=== PATIENT | female | born 2005 | race Caucasian/White ===

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

== ENCOUNTER 2023-09-27 19:32 | Emergency (ER) | payer MEDICAID, SELFPAY ==
[2023-09-27 19:34] VITALS: BP 117/90; PULSE 105; RESP 18; TEMP 35.9; O2SAT 99; BMI 21.6
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
== END 2023-09-27 22:48 | disposition home or self-care (01) ==
PROVIDERS: Emergency Provider Emergency Medicine; Visit Provider Emergency Medicine
DX: S20.212A Contusion of left front wall of thorax, initial encounter (principal); M25.512 Pain in left shoulder; V43.54XA Car driver injured in collision with van in traffic accident, initial encounter; Z79.899 Other long term (current) drug therapy; F17.210 Nicotine dependence, cigarettes, uncomplicated
CPT/HCPCS: 71045; 99282

== ENCOUNTER → 2023-12-21 | Outpatient (CLI) | payer MEDICAID, SELFPAY ==
--- NOTE | 2023-12-21 13:16 | US_ITS ---
STUDY: FIRST TRIMESTER OBSTETRICAL ULTRASOUND REASON FOR EXAM: Female, 18 years old Viability LMP: August 10, 2024. TECHNIQUE: Transvaginal TECHNICAL QUALITY: Adequate. PRIOR ULTRASOUND: None. FINDINGS: There is visualization of a single gestational sac in a normal intrauterine position. The mean sac diameter (MSD) measures 1.11 cm, indicating an estimated gestational age (EGA) of 5 weeks, 6 days. The gestational sac shape is within normal limits. There is a visualized yolk sac. The yolk sac measures 3.1 mm. The placenta is non-visualized. There is no demonstrated embryo ( pole). The estimated gestation age (EGA) by LMP is 6 weeks, 5 days. The estimated date of delivery (CLEMENTE) by LMP is August 10, 2024. The estimated gestation age (EGA) by US is 5 weeks, 6 days. The estimated date of delivery (CLEMENTE) by US is August 16, 2024. The uterus measures 10.2 cm x 7.2 cm x 5.2 cm. There is no demonstrated uterine fibroid. The cervix is closed. The right ovary measures 3.5 cm x 2.8 cm x 3 cm. There is no right ovarian cyst. There is no visualized right adnexal mass or complex lesion. The left ovary measures 3.1 cm x 1.97 x 2.2 cm. There is no left ovarian cyst. There is no visualized left adnexal mass or complex lesion. There is no fluid in the cul de sac. US/Transvaginal w/Preg US IMPRESSION: Intrauterine gestation with mediastinal age of 5 weeks and 6 days. No pole is seen at this time. Electronically Signed: Shivam Han MD at 14:27 EST ,
[2023-12-21 15:14] LABS: Absolute Lymphocyte Count 2.19 X10^3/uL (0.83-4.51); Absolute Neutrophil Count 4.3 X10^3/uL (2.0-7.7); Basophil# 0.02 X10^3/uL; Basophil% 0.3 % (0-1); Eosinophil# 0.03 X10^3/uL; Eosinophils% 0.4 % (0-5); Hematocrit 37.4 % (37-47); Hemoglobin 12.6 g/dL (12.0-15.0); Lymphocyte # 2.19 X10^3/ul (0.83-4.51); Lymphocyte % 31.8 % (19-41); Mean Corp Hgb Conc 33.7 g/dL (32-36); Mean Corpuscular Hgb 29.9 pg (27.0-32.0); Mean Corpuscular Volume 88.8 fL (81-99); Mean Platelet Vol. 10.3 fl (6.2-12.0); Monocyte# 0.37 X10^3/uL; Monocyte% 5.4 % (0-10); NRBC Flagged by Analyzer 0 % (0-5); Neutrophil # 4.27 X10^3/uL (2.7-7.7); Platelet Count 242 K/mm3 (150-450); RBC Distribution Width CV 12.2 % (11.6-14.6); RBC Distribution Width SD 39.6 fl (35.1-43.9); Red Blood Count 4.21 M/mm3 (4.2-5.4); White Blood Count 6.9 K/mm3 (4.4-11.0)
[2023-12-21 16:27] LABS: HIV - WCH Non-Reactive (Nonreactive); Hepatitis B Surface Antigen Non-Reactive (Nonreactive); Hepatitis C Antibody Non-Reactive (Nonreactive); Rubella IgG Reactive (Nonreactive); Syphilis Antibodies Non-reactive
[2023-12-22 15:16] LABS: hCG Titer Quant., Serum 20188 mIU/mL (1-3)
== END | disposition home or self-care (01) ==
PROVIDERS: Advanced Practice Midwife; Obstetrics & Gynecology; Referring Provider Obstetrics & Gynecology; Visit Provider Obstetrics & Gynecology
DX: O26.899 Other specified pregnancy related conditions, unspecified trimester (principal); R10.9 Unspecified abdominal pain; Z3A.00 Weeks of gestation of pregnancy not specified
CPT/HCPCS: 36415; 76817; 84702; 85025; 86703; 86762; 86780; 86803; 86850; 86900; 86901; 87077; 87086; 87088; 87186; 87340

== ENCOUNTER → 2024-01-05 | Outpatient (CLI) | payer MEDICAID, SELFPAY ==
[2024-01-05 10:20] LABS: Amphetamine Urine VISTA NEGATIVE (<1000 ng/mL); Barbiturate Urine VISTA NEGATIVE (< 200 ng/mL); Benzodiazepine Urine VISTA NEGATIVE (< 200 ng/mL); Cocaine Urine VISTA NEGATIVE (< 300 ng/mL); Ecstacy Urine VISTA NEGATIVE (< 500 ng/mL); Methadone Urine VISTA NEGATIVE (< 300 ng/mL); PCP Urine VISTA NEGATIVE (< 25 ng/mL); THC Urine VISTA NEGATIVE (< 50 ng/mL); Vista UDS pH Range 5
[2024-01-06 21:07] LABS: Chlamydia By Nucleic Acid AMP Negative (Negative); Gonococcus By Nucleic Acid AMP Negative (Negative)
== END | disposition home or self-care (01) ==
PROVIDERS: PCP Registered Nurse; Referring Provider Registered Nurse; Visit Provider Registered Nurse
DX: Z34.90 Encounter for supervision of normal pregnancy, unspecified, unspecified trimester (principal)
CPT/HCPCS: 80307; 87491; 87591

== ENCOUNTER 2024-03-12 18:51 | Emergency (ER) | payer MEDICAID, SELFPAY ==
[2024-03-12 18:52] VITALS: BP 131/83; PULSE 101; RESP 18; TEMP 36.4; O2SAT 100; BMI 20.9
[2024-03-12 19:17] LABS: Red Blood Cells-Urine 0 SEEN /hpf (0-5)
[2024-03-12 19:20] LABS: Color, Urine Yellow (Yellow); Glucose, Dipstick Normal (Normal); Ketone-Dipstick Negative (Negative); Leukocyte Esterase-Dipstick 500 /ul (Negative); Nitrite-Dipstick Negative (Negative); Occult Blood-Urine 10 /ul (Negative); Protein-Dipstick Negative (Negative); Specific Gravity, Urine 1.015 (1.002-1.030); Urine Bilirubin Dipstick Negative (Negative); Urine Clarity Clear (Clear); Urine Urobilinogen Normal (Normal); Urine pH 6.5 (5.0 - 8.0)
[2024-03-12 19:20] LABS: Absolute Neutrophil Count 4.5 X10^3/uL (2.0-7.7); Basophil# 0.01 X10^3/uL; Basophil% 0.1 % (0-1); Eosinophil# 0.02 X10^3/uL; Eosinophils% 0.3 % (0-5); Hematocrit 32.7 % (37-47); Hemoglobin 11.3 g/dL (12.0-15.0); Lymphocyte % 29.1 % (19-41); Mean Corp Hgb Conc 34.6 g/dL (32-36); Mean Corpuscular Hgb 30.9 pg (27.0-32.0); Mean Corpuscular Volume 89.3 fL (81-99); Mean Platelet Vol. 10.1 fl (6.2-12.0); Monocyte# 0.36 X10^3/uL; Monocyte% 5.2 % (0-10); NRBC Flagged by Analyzer 0 % (0-5); Neutrophil # 4.47 X10^3/uL (2.7-7.7); Neutrophil % 65.2 % (47-70); Platelet Count 232 K/mm3 (150-450); RBC Distribution Width CV 12.1 % (11.6-14.6); RBC Distribution Width SD 39.6 fl (35.1-43.9); Red Blood Count 3.66 M/mm3 (4.2-5.4); White Blood Count 6.9 K/mm3 (4.4-11.0)
--- NOTE | 2024-03-12 19:21 | EX.ED.DYSGE1 ---
HPI History of Present Illness Chief Complaint: Dizziness Narrative Narrative: 18-year-old female presenting with lightheadedness. She states she was at work and started to feel lightheaded and see spots. She felt nauseous. She felt like she might faint but she did not. She has a coworker which she should do and they told her to eat something and she did which made her more nauseous. She states she had a salad. Patient states that she started some water but then felt like she was going to faint so she wanted to get out of work and came here. Patient is 18 weeks . She states she has had some brown discharge after sexual intercourse. She is a positive. She has not had any bright red blood. She has had confirmed intrauterine already this . No diarrhea or constipation. She does have urinary symptoms and mild headaches which she attributed to . She was told that she has group B strep which is causing her symptoms but she was told she did not have a UTI. Patient denies fevers. She does state that she has a history of anxiety. [facility] Medical History Hx of trauma Hx of chlamydia infection Closed boxer's fracture Substance abuse Smoker Borderline personality disorder Vagina itching Hip pain, bilateral Back pain Oppositional defiant disorder Screen for STD (sexually transmitted disease) Insomnia ADHD Bipolar 1 disorder Depression Anxiety Home Medications ?Medication ?Instructions ?Recorded ?Last Taken ?Type aspirin 81 mg tablet,delayed 81 mg PO DAILY 12/31/23 Unknown History release (Jim Low Dose Aspirin) multivitamin no.47-iron fum 27 cap PO 12/31/23 Unknown History mg-folate no.1 1 mg-dha 300 mg capsule (PNV-DHA) aspirin 81 mg capsule 81 mg PO ONCE #30 caps 01/05/24 Unknown Rx docosahexaenoic acid 200 mg 200 mg PO DAILY #30 caps 01/05/24 Unknown Rx capsule (DHA from Algae) levomefolate calcium 15 mg tablet 15 mg PO DAILY #30 tabs 01/05/24 Unknown Rx (L-Methylfolate) ferrous sulfate 325 mg (65 mg 325 mg PO DAILY #90 tabs 02/02/24 Unknown Rx iron) tablet (Feosol) Allergy/AdvReac Type Severity Reaction Status Date / Time amoxicillin Allergy Mild Hives Verified 03/12/24 18:52 penicillin G Allergy Mild Hives Verified 03/12/24 18:52 Environmental Allergies: Allergy Hives Verified 03/12/24 18:52 Uncoded folic acid AdvReac Intermediate depression Verified 03/12/24 18:52 Family History Grandfather Cancer Maternal -lung Grandmother Diabetes maternal TIA (transient ischemic attack) Mother Liver disease Cirrhosis COPD (chronic obstructive pulmonary disease) Father Fibromyalgia Brother Cancer, Onset Age: 31 Half Brother- Bladder ca Social History adopted: No housing: apartment current occupational status: employed 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 current occupational exposures/hazards: No pets and animals: Yes pets and animals: dog(s) history of recent travel: No sexually active: Yes Smoking Status: Current every day smoker tobacco type: cigarettes and e-cigarettes Electronic Cigarette Use: with nicotine quit status: considering quitting alcohol intake: never substance use type: does not use diet: lactose free well-balanced diet: daily or most days caffeine: Yes Type: coffee Number of servings: 2 eating out: 4 or more times/week during the past year weight has: remained stable what type of physical activity do you participate in: none deepak/gnosticism: None seatbelt use: always do you feel safe at home: Yes additional social history: ERIN Servin ROS ROS ED Constitutional Constitutional ED: Denies chills, fever(s) or sweats Eyes Eyes: Denies blurry vision or change in vision ENT ENT ED: Denies ear pain or sore throat Cardiovascular Cardiovascular: Reports other Details: Lightheadedness ; Denies chest pain, palpitations or racing heartbeat Respiratory/Chest Respiratory/Chest: Denies cough, dyspnea or sputum Gastrointestinal Gastrointestinal: Reports nausea; Denies abdominal pain, constipation, diarrhea or vomiting Genitourinary Genitourinary ED: Denies dysuria, hematuria or urinary frequency Musculoskeletal Musculoskeletal: Denies arthralgias, myalgias or neck pain Integumentary Denies abscess, Abrasions or rash Neurologic Neurologic: Denies headache(s), paresthesias or weakness Psychiatric Psychiatric: Denies anxiety, depression, suicidal ideation or suicidal thoughts Endocrine Endocrinology: Denies polydipsia or polyuria EXAM Physical Exam Const Vital Signs: 03/12/24 18:52 03/12/24 19:06 03/12/24 19:51 Temperature 97.6 F L Temperature Source Temporal Pulse Rate 101 H 69 Respiratory Rate 18 18 Respiratory Effort Normal Blood Pressure 131/83 H 126/70 H Blood Pressure Mean 99 88 Pulse Ox 100 98 Oxygen Delivery Method Room Air 03/12/24 20:51 03/12/24 21:00 Temperature Temperature Source Pulse Rate 67 65 Respiratory Rate 18 18 Respiratory Effort Blood Pressure 124/67 H Blood Pressure Mean 86 Pulse Ox 98 96 Oxygen Delivery Method Room Air Positive well nourished General Appearance ED: NAD; Negative for pallor HEENT Reports moist mucous membranes Eyes PERRL and EOMs intact bilaterally Resp normal respiratory effort and clear to auscultation bilaterally Auscultation: Negative for rales, rhonchi or wheezes Cardio regular rate and regular rhythm GI normal to inspection, nondistended, normoactive bowel sounds Neuro oriented x3 and CN's II-XII intact bilaterally Sensorium / Orientation: alert Motor Exam: strength 5/5 throughout Psych mental status grossly normal Skin no rashes or lesions noted and no wounds General Skin Exam: Negative for jaundice or pallor MDM MDM MDM Narrative Medical decision making narrative: 18-year-old female presenting with nausea and lightheadedness. Basic lab work was obtained and her CBC shows normal white blood count of 6.9. Hemoglobin 11.3. Platelets are normal at 232. Renal function electrolytes within normal limits. hCG is gone up to 21 385. Urinalysis shows 500 leukocyte esterase with 0-5 WBCs and 0-5 squamous epithelial cells. Patient was given Zofran and IV fluids and feels a little bit better but not all the way back to baseline. She is amenable to following up with her CHAIRMAN PRESIDENT AND CHIEF EXECUTIVE OFFICER. She has Zofran at home if she needs it. Bedside ultrasound performed by myself shows a live fetus with active movement and heart tones of 156. Impression: 1. Lightheadedness 2. Nausea Lab Data Attestation: I reviewed the patient's lab results. Labs: Laboratory Results - last 24 hr 03/12/24 03/12/24 19:05 19:08 WBC 6.9 RBC 3.66 L Hgb 11.3 L Hct 32.7 L MCV 89.3 MCH 30.9 MCHC 34.6 RDW Std Deviation 39.6 RDW Coeff of Elijah 12.1 Plt Count 232 MPV 10.1 Immature Gran % (Auto) 0.100 Neut % (Auto) 65.2 Lymph % (Auto) 29.1 Coffey % (Auto) 5.2 Eos % (Auto) 0.3 Baso % (Auto) 0.1 Absolute Neuts (auto) 4.5 Absolute Lymphs (auto) 2.00 Nucleated RBC % 0 Sodium 136 Potassium 4.0 Chloride 107 Carbon Dioxide 24.0 Anion Gap 5 BUN 6 L Creatinine 0.60 Estim Creat Clear Calc 129.15 Est GFR (MDRD) Af Amer 162 Est GFR (MDRD) Non-Af 134 BUN/Creatinine Ratio 9.9 L Glucose 86 Calcium 8.7 HCG, Quant 28036 H Urine Color Yellow Urine Clarity Clear Urine pH 6.5 Ur Specific [place] 1.015 Urine Protein Negative Urine Glucose (UA) Normal Urine Ketones Negative Urine Occult Blood 10 H Urine Nitrite Negative Urine Bilirubin Negative Urine Urobilinogen Normal Ur Leukocyte Esterase 500 H Urine RBC 0 SEEN Urine WBC 0-5 SEEN Ur Squamous Epith Cells 0-5 SEEN Urine Bacteria 1+ Urine Mucus 1+ Discharge Plan Triage Chief Complaint: Dizziness ED Provider: Bob Breaux Dx/Rx/DC Orders Prescriptions: No Action PNV-DHA 27 mg iron-1 mg -300 mg capsule PO aspirin [Jim Low Dose Aspirin] 81 mg tablet,delayed release (DR/EC) 81 mg PO DAILY aspirin 81 mg capsule 81 mg PO ONCE Qty: 30 12RF levomefolate calcium [L-Methylfolate] 15 mg tablet 15 mg PO DAILY Qty: 30 12RF DHA from Algae 200 mg capsule 200 mg PO DAILY Qty: 30 12RF ferrous sulfate [Feosol] 325 mg (65 mg iron) tablet 325 mg PO DAILY Qty: 90 2RF Primary Care Provider: Desiree Eagle [employer] Referrals: Beth Brooks CNM [Med Staff - Adv Practice Prof] - Print Language: Pashto
[2024-03-12 19:27] LABS: Bacteria 1+ /hpf (None Seen); Mucous, Urine 1+ /hpf (<or=2+); Squamous Epithelial Cells - UA 0-5 SEEN /hpf (5-10); White Blood Cells 0-5 SEEN /hpf (0-5)
[2024-03-12] MEDS: Ondansetron 4 MG/2 ML Vial IV (19:28)
[2024-03-12] MEDS: 0.9% Normal Saline (1000mL) 1,000 ML 999 ML IV (19:28)
[2024-03-12 19:32] LABS: Anion Gap 5 (5-15); BUN 6 mg/dL (7-18); BUN/Creat Ratio 9.9 RATIO (10-20); Calcium,Total 8.7 mg/dL (8.5-10.1); Chloride 107 mmol/L (98-107); EST Glomerular Filtration Rate 134 mL/min (>60); Est Glom Filt Rate - Afr Amer 162 mL/min (>60); Estimated Creatinine Clearance 129.15 ml/min; Glucose 86 mg/dL (74-106); Sodium Level 136 mmol/L (136-145)
[2024-03-12 19:51] VITALS: BP 126/70; PULSE 69; RESP 18; O2SAT 98
[2024-03-12 20:21] LABS: hCG Titer Quant., Serum 21385 mIU/mL (1-3)
[2024-03-12 20:51] VITALS: BP 124/67; PULSE 67; RESP 18; O2SAT 98
[2024-03-12 21:00] VITALS: PULSE 65; RESP 18; O2SAT 96
== END 2024-03-12 22:49 | disposition home or self-care (01) ==
PROVIDERS: Emergency Provider Student in an Organized Health Care Education/Training Program; PCP Registered Nurse; Visit Provider Student in an Organized Health Care Education/Training Program
DX: O99.891 Other specified diseases and conditions complicating pregnancy (principal); R42 Dizziness and giddiness; R11.0 Nausea; O99.332 Smoking (tobacco) complicating pregnancy, second trimester; F17.210 Nicotine dependence, cigarettes, uncomplicated; F17.290 Nicotine dependence, other tobacco product, uncomplicated; Z3A.18 18 weeks gestation of pregnancy; Z79.82 Long term (current) use of aspirin
CPT/HCPCS: 80048; 81001; 84702; 85025; 87086; 96361; 96374; 99282; J7030; J2405

== ENCOUNTER → 2024-03-30 | Outpatient (CLI) | payer MEDICAID, SELFPAY ==
[2024-03-30 13:07] LABS: Absolute Lymphocyte Count 1.63 X10^3/uL (0.83-4.51); Absolute Neutrophil Count 6.3 X10^3/uL (2.0-7.7); Basophil# 0.01 X10^3/uL; Basophil% 0.1 % (0-1); Eosinophil# 0.03 X10^3/uL; Eosinophils% 0.4 % (0-5); Hematocrit 31.6 % (37-47); Hemoglobin 10.8 g/dL (12.0-15.0); Lymphocyte # 1.63 X10^3/ul (0.83-4.51); Lymphocyte % 19.8 % (19-41); Mean Corp Hgb Conc 34.2 g/dL (32-36); Mean Corpuscular Hgb 31.2 pg (27.0-32.0); Mean Corpuscular Volume 91.3 fL (81-99); Monocyte# 0.28 X10^3/uL; Monocyte% 3.4 % (0-10); NRBC Flagged by Analyzer 0 % (0-5); Neutrophil # 6.25 X10^3/uL (2.7-7.7); Neutrophil % 75.8 % (47-70); Platelet Count 211 K/mm3 (150-450); RBC Distribution Width CV 12.5 % (11.6-14.6); RBC Distribution Width SD 40.8 fl (35.1-43.9); Red Blood Count 3.46 M/mm3 (4.2-5.4); White Blood Count 8.2 K/mm3 (4.4-11.0)
[2024-03-30 14:06] LABS: HIV - WCH Non-Reactive (Nonreactive); Hepatitis B Surface Antigen Non-Reactive (Nonreactive); Hepatitis C Antibody Non-Reactive (Nonreactive); Rubella IgG Reactive (Nonreactive); Syphilis Antibodies Non-reactive
== END | disposition home or self-care (01) ==
LOC: PAVLAB 12:34
PROVIDERS: Registered Nurse; PCP Registered Nurse; Referring Provider Obstetrics & Gynecology; Visit Provider Obstetrics & Gynecology
DX: O09.92 Supervision of high risk pregnancy, unspecified, second trimester (principal); R10.30 Lower abdominal pain, unspecified; Z3A.00 Weeks of gestation of pregnancy not specified
CPT/HCPCS: 36415; 85025; 86703; 86762; 86780; 86803; 86850; 86900; 86901; 87086; 87088; 87340

== ENCOUNTER → 2024-04-18 | Outpatient (CLI) | payer MEDICAID, SELFPAY ==
--- NOTE | 2024-04-18 13:33 | US_ITS ---
HISTORY: Cervical Length. TECHNIQUE: Transabdominal and transvaginal pelvic ultrasound was performed. 15 images. COMPARISON: None. FINDINGS: PLACENTA: Posterior. No placenta previa. CERVIX: 4.7 cm long and closed. HEART MOTION: 135 bpm. US/Transvaginal w/Preg US IMPRESSION: Cervix 4.7 cm in length and closed. Electronically Signed: Yaneli Woo MD at 11:08 EDT ,
== END | disposition home or self-care (01) ==
LOC: US 13:32
PROVIDERS: PCP Registered Nurse; Referring Provider Obstetrics & Gynecology; Visit Provider Obstetrics & Gynecology
DX: O09.899 Supervision of other high risk pregnancies, unspecified trimester (principal); Z3A.00 Weeks of gestation of pregnancy not specified
CPT/HCPCS: 76817

== ENCOUNTER → 2024-05-02 | Outpatient (CLI) | payer MEDICAID, SELFPAY ==
--- NOTE | 2024-05-02 12:05 | US_ITS ---
STUDY: SECOND AND THIRD TRIMESTER OBSTETRICAL ULTRASOUND - LIMITED REASON FOR EXAM: Female, 18 years old follow up growth LMP: 11/06/2023 PRIOR ULTRASOUND: 04/21/2024 TECHNIQUE: Transabdominal and Transvaginal TECHNICAL QUALITY: Adequate. FINDINGS: There is a single intrauterine fetus. The fetus is in a breech presentation. There is demonstrated cardiac activity with a heart rate of 129 bpm. There is a normal amniotic fluid volume. The largest amniotic fluid pocket measures 3.8 cm. The amniotic fluid index (MICHELE) is 13.6 cm. The placenta is posterior in location and is not low lying. There are Grade 1 placental changes. The cervix measures 5.1 cm in length. BIOMETRY: BPD: 5.9 cm: 24 weeks, 1 days HC: 22.2 cm: 24 weeks, 2 days AC: 18.3 cm: 23 weeks, 1 days FL: 4.6 cm: 25 weeks, 2 days Age by LMP: 25 weeks, 3 days. CLEMENTE by LMP: 08/12/2024. age by prior US: weeks, days. CLEMENTE by prior US: . age by current US: 24 weeks, 1 days. CLEMENTE by current US: 08/21/2024. Estimated weight: 658 grams, +/- 99 grams, 5 percentile. Gender: US/OB Limited With Biometrics IMPRESSION: Living intrauterine of 24 weeks 1 day as described above. age is discordant for age by LMP of 25 weeks 3 days suggestive of incorrect dates or intrauterine growth retardation. Electronically Signed: Ernie Lugo MD at 15:25 EDT ,
== END | disposition home or self-care (01) ==
PROVIDERS: PCP Registered Nurse; Referring Provider Obstetrics & Gynecology; Visit Provider Obstetrics & Gynecology
DX: O36.5920 Maternal care for other known or suspected poor fetal growth, second trimester, not applicable or unspecified (principal); Z3A.24 24 weeks gestation of pregnancy
CPT/HCPCS: 76816

== ENCOUNTER → 2024-05-25 | Outpatient (CLI) | payer MEDICAID, SELFPAY ==
[2024-05-25 13:36] LABS: Absolute Lymphocyte Count 1.89 X10^3/uL (0.83-4.51); Basophil# 0.02 X10^3/uL; Basophil% 0.2 % (0-1); Eosinophil# 0.07 X10^3/uL; Eosinophils% 0.7 % (0-5); Hematocrit 30.4 % (37-47); Hemoglobin 10.3 g/dL (12.0-15.0); Lymphocyte # 1.89 X10^3/ul (0.83-4.51); Lymphocyte % 20.2 % (19-41); Mean Corp Hgb Conc 33.9 g/dL (32-36); Mean Corpuscular Hgb 30.7 pg (27.0-32.0); Mean Corpuscular Volume 90.7 fL (81-99); Mean Platelet Vol. 9.4 fl (6.2-12.0); Monocyte# 0.36 X10^3/uL; Monocyte% 3.9 % (0-10); NRBC Flagged by Analyzer 0 % (0-5); Neutrophil # 6.97 X10^3/uL (2.7-7.7); Neutrophil % 74.7 % (47-70); Platelet Count 217 K/mm3 (150-450); RBC Distribution Width CV 11.9 % (11.6-14.6); RBC Distribution Width SD 38.9 fl (35.1-43.9); Red Blood Count 3.35 M/mm3 (4.2-5.4); White Blood Count 9.3 K/mm3 (4.4-11.0)
[2024-05-25 13:55] LABS: Glucose Challenge Gest 1H 50g 130 mg/dL (70-140)
[2024-05-25 14:32] LABS: HIV - WCH Non-Reactive (Nonreactive); Syphilis Antibodies Non-reactive
== END | disposition home or self-care (01) ==
LOC: PAVLAB 12:55
PROVIDERS: PCP Registered Nurse; Referring Provider Obstetrics & Gynecology; Visit Provider Obstetrics & Gynecology
DX: O99.012 Anemia complicating pregnancy, second trimester (principal); Z13.1 Encounter for screening for diabetes mellitus; Z3A.20 20 weeks gestation of pregnancy; D64.9 Anemia, unspecified
CPT/HCPCS: 36415; 82950; 85025; 86703; 86780

== ENCOUNTER → 2024-06-08 | Outpatient (CLI) | payer MEDICAID, SELFPAY | END | disposition home or self-care (01) | PROVIDERS: PCP Registered Nurse; Referring Provider Obstetrics & Gynecology; Visit Provider Obstetrics & Gynecology | DX: R42 Dizziness and giddiness (principal) | CPT/HCPCS: 87086; 87088 ==

== ENCOUNTER 2024-06-15 13:46 | Outpatient (CLI) | payer MEDICAID, SELFPAY ==
[2024-06-15 13:57] VITALS: RESP 18; TEMP 36.4
[2024-06-15 14:05] VITALS: BP 105/63; PULSE 103
[2024-06-15 14:21] VITALS: BMI 21.7
[2024-06-15 14:33] LABS: Mucous, Urine 0 SEEN /hpf (<or=2+); Red Blood Cells-Urine 0 SEEN /hpf (0-5)
[2024-06-15 14:35] LABS: Color, Urine Yellow (Yellow); Glucose, Dipstick Normal (Normal); Ketone-Dipstick 5 mg/dl (Negative); Leukocyte Esterase-Dipstick Negative /ul (Negative); Nitrite-Dipstick Negative (Negative); Occult Blood-Urine Negative /ul (Negative); Protein-Dipstick 15 mg/dl (Negative); Specific Gravity, Urine 1.025 (1.002-1.030); Urine Bilirubin Dipstick Negative (Negative); Urine Clarity Clear (Clear); Urine Urobilinogen Normal (Normal)
[2024-06-15 14:46] LABS: Bacteria RARE /hpf (None Seen); Squamous Epithelial Cells - UA 0-5 SEEN /hpf (5-10); White Blood Cells 0-5 SEEN /hpf (0-5)
[2024-06-15] MEDS: Lactated Ringers 1,000 ML 999 ML IV (15:00)
[2024-06-15] MEDS: 0.9% Saline Lock 10 ML Syringe IV (16:01)
[2024-06-15 16:05] LABS: Fetal Fibronectin Negative; Record Kit Lot#, fFN H3011
[2024-06-15 16:10] VITALS: BP 114/71; PULSE 64; RESP 18; TEMP 36.2
--- NOTE | 2024-06-15 17:33 | OB.TRI.HP_ITS ---
HPI - General HPI Narrative JENSEN SALDIVAR, is a 18 F who presents with contractions no vb lof admits good fm Maternal Data Information CLEMENTE Calculator Estimated Delivery Date Method Current WG Current Estimate 08/12/24 LMP (Certain) 31w 5d PFSH PFSH Medical History Anemia Hx of trauma Hx of chlamydia infection Closed boxer's fracture Substance abuse Smoker Borderline personality disorder Vagina itching Hip pain, bilateral Back pain Oppositional defiant disorder Screen for STD (sexually transmitted disease) Insomnia ADHD Bipolar 1 disorder Depression Anxiety Home Medications ?Medication ?Instructions ?Recorded ?Last Taken ?Type aspirin 81 mg tablet,delayed 81 mg PO DAILY 12/31/23 Unknown History release (Jim Low Dose Aspirin) multivitamin no.47-iron fum 27 cap PO 12/31/23 Unknown History mg-folate no.1 1 mg-dha 300 mg capsule (PNV-DHA) docosahexaenoic acid 200 mg 200 mg PO DAILY #30 caps 01/05/24 Unknown Rx capsule (DHA from Algae) levomefolate calcium 15 mg tablet 15 mg PO DAILY #30 tabs 01/05/24 Unknown Rx (L-Methylfolate) ferrous sulfate 325 mg (65 mg 325 mg PO DAILY #90 tabs 02/02/24 Unknown Rx iron) tablet (Feosol) Allergy/AdvReac Type Severity Reaction Status Date / Time amoxicillin Allergy Mild Hives Verified 06/15/24 14:17 penicillin G Allergy Mild Hives Verified 06/15/24 14:17 Environmental Allergies: Allergy Hives Verified 06/15/24 14:17 Uncoded folic acid AdvReac Intermediate depression Verified 06/15/24 14:17 Family History Grandfather Cancer Maternal -lung Grandmother Diabetes maternal TIA (transient ischemic attack) Mother Liver disease Cirrhosis COPD (chronic obstructive pulmonary disease) Father Fibromyalgia Brother Cancer, Onset Age: 31 Half Brother- Bladder ca Social History adopted: No housing: apartment current occupational status: employed 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 current occupational exposures/hazards: No pets and animals: Yes pets and animals: dog(s) history of recent travel: No sexually active: Yes Smoking Status: Current every day smoker tobacco type: cigarettes and e- cigarettes Electronic Cigarette Use: with nicotine quit status: considering quitting alcohol intake: never substance use type: does not use diet: lactose free well-balanced diet: daily or most days caffeine: Yes Type: coffee Number of servings: 2 eating out: 4 or more times/week during the past year weight has: remained stable what type of physical activity do you participate in: none deepak/druze: None seatbelt use: always do you feel safe at home: Yes additional social history: FOB - Olegario History 2 Elective abortions Hx Para 1 Spontaneous abortions Hx # Term Pregnancies Ectopic pregnancies Hx # Pregnancies Multiple births # of living children 1 Past Pregnancies Del. Date Name GA/Weeks Outcome Route Bth Weight Gen Labor Lgth Anesthesia Del Locatn Provider FOB 06/01/18 Efraín 34 live - 4lbs 15oz Male 10 h ours epidural [facility] Dr. Nolasco Visit Details Expected Delivery Route/Plan Labor Preferences- CB/BF classes: [] labor support person: [] labor intervention preferences: [] pain management options preferred: [] cut cord/dad catch: [] : [] PP control planned: [] discussed possible routes of delivery and associated risks: [] special requests: [] Plans Covid status: [] Flu vaccine: [] Tdap vaccine: declined Rhogam:na LARC form signed: declined movement and labor precautions reviewed. Problem list reviewed and updated with the most current plan of care details and appropriate orders placed. Relevant counseling for the gestational age provided. Continue routine care and follow up unless otherwise noted in visit notes/problem list details OB Flowsheet Initial Weight: Not Recorded Date -?-?-?-?-?-?-?-?-?-?-?-?- EGA Weight BP Urine Prot -?-?-?-?-?-?-?-?-?-?-?-?- Glucose FHR FuHt Pres Dilation -?-?-?-?-?-?-?-?-?-?-?-?- Effaced St Visit Note 12/21/23 -?-?-?-?-?-?-?-?-?-?-?-?- 6w 3d 127 lb 4 oz 102/69 -?-?-?-?-?-?-?-?-?-?-?-?- -?-?-?-?-?-?-?-?-?-?-?-?- kw- Formal US to day showing gest age of 5.6 weeks with no pole. patient having fatigue and increased hunger. NOB blood work today. to repeat US late this week or early next week to determine viability. 01/05/24 -?-?-?-?-?-?-?-?-?-?-?-?- 8w 4d 206 lb 6 oz 126 lb 8 oz 114/61 109/71 -?-?-?-?-?-?-?-?-?-?-?-?- 157 -?-?-?-?-?-?-?-?-?-?-?-?- LC- 15mm CRL con with LMP. CLEMENTE 08/12/2024. +FHR. LC- 15mm CRL con with LMP. E DD 08/12/2024. +FHR. gc/ct collected. drug screening obtained. 02/02/24 -?-?-?-?-?-?-?-?-?-?-?-?- 12w 4d 123 lb 110/64 Negative -?-?-?-?-?-?-?-?-?-?-?-?- Negative 168 -?-?-?-?-?-?-?-?-?-?-?-?- MH-NO VB, craesdras ng. Reviewed PN labs. Not taking PNV due to folic acid allergy. Insurance doesn't cover L meth jomar. 02/29/24 -?-?-?-?-?-?-?-?-?-?-?-?- 16w 3d 122 lb 110/66 Negative -?-?-?-?-?-?-?-?-?-?-?-?- Negative 157 -?-?-?-?-?-?-?-?-?-?-?-?- MH-Has had light spotting after intercourse but resolves next day. Denies other concerns. No flutters yet. MFM US 03/23. FHT easily found 03/31/24 -?-?-?-?-?-?-?-?-?-?-?-?- 20w 6d 124 lb 4 oz 110/71 Nega tive -?-?-?-?-?-?-?-?-?-?-?-?- Negative 150 -?--?-?-?-?-?-?-?-?-?-?-?- Sm- no vb lof go od fm no regualr ctx co right hip pain. discussed PT and massage therapy 04/28/24 -?-?-?-?-?-?-?-?-?-?-?-?- 24w 6d 125 lb 111/68 Negative -?-?-?-?-?-?-?-?-?-?-?-?- Negative 140 -?-?-?-?-?-?-?-?-?-?-?-?- SM- no vb lof go od fm n oregular ctx 05/25/24 -?-?-?-?-?-?-?-?-?--?-?-?- 28w 5d 128 lb 4 oz 108/71 Nega tive -?-?-?-?-?-?-?-?-?-?-?-?- Negative 145 27 -?-?-?-?-?-?-?-?-?-?-?-?- SM- no vb lof go o dfm no regular ctx nl gct 06/08/24 -?-?-?-?-?-?-?-?-?-?-?-?- 30w 5d 129 lb 106/69 Negative -?-?-?-?-?-?-?-?-?-?-?-?- Negative 140 29 -?-?-?-?-?--?-?-?-?-?-?-?- SM- no vb lof go od fm no regular ctx ROS Constitutional Constitutional: Reports systems reviewed and no addt'l complaints, except as documented and as per HPI ENT HEENT: Reports systems reviewed and no addt'l complaints, except as documented Cardiovascular Cardiovascular: Reports systems reviewed and no addt'l complaints, except as documented Respiratory/Chest Respiratory/Chest: Reports systems reviewed and no addt'l complaints, except as documented Gastrointestinal Gastrointestinal: Reports as per HPI Genitourinary Genitourinary: Reports as per HPI Musculoskeletal Musculoskeletal: Reports systems reviewed and no addt'l complaints, except as documented Integumentary Integumentary: Reports systems reviewed and no addt'l complaints, except as documented Neurologic Neurologic: Reports systems reviewed and no addt'l complaints, except as documented Physical Exam Const alert, oriented x3 and no apparent distress HEENT Head and Scalp: normocephalic and atraumatic Neck full ROM and no lymphadenopathy Chest inspection of chest normal Resp normal respiratory effort GI GI Narrative: gravid, abdomen nontender, AGA Manual OB Exam: dilated FT, effaced 0 and station high NST FHR Rate Baby A Baseline: 135 Variability:: Moderate Accelerations:: 15 x 15 Decelerations:: None NST Reactive:: Yes FHR Category:: Category I Uterine Activity:: irregular q 6-8 Assessment & Plan (1) Threatened labor: COMMENT: FFN neg 06/15 (2) : QUALIFIERS: Weeks of gestation: 28 weeks Qualified Code(s): Z3A.28 - 28 weeks gestation of COMMENT: declined genetic & carrier testing (3) Supervision of high-risk : QUALIFIERS: Trimester: second trimester Qualified Code(s): O09.92 - Supervision of high risk , unspecified, second trimester COMMENT: PRR , CLEMENTE 08/12/24,girl Ana Ramírezakai, FOB OLEGARIO PLAN: Plan no cervical change, FFN negative dc home after IVFs given Charges/Coding Multi Select Codes Visit Charges Office Visit/Consults: 11319 OV L3 Est 20min Urinary/Genital Urinary/Genital CPT Codes: 97420-36 non-stress test Interp
== END 2024-06-15 17:45 | disposition home or self-care (01) ==
LOC: WPOUT 13:52 → WP 13:53
PROVIDERS: PCP Registered Nurse; Referring Provider Obstetrics & Gynecology; Visit Provider Obstetrics & Gynecology
DX: O47.03 False labor before 37 completed weeks of gestation, third trimester (principal); Z3A.28 28 weeks gestation of pregnancy; O09.93 Supervision of high risk pregnancy, unspecified, third trimester; F17.210 Nicotine dependence, cigarettes, uncomplicated; F17.290 Nicotine dependence, other tobacco product, uncomplicated; O99.333 Smoking (tobacco) complicating pregnancy, third trimester
CPT/HCPCS: 96360; 59025; 59050; 81001; 82731; 99221; J7120; A4216; G0378

== ENCOUNTER 2024-07-07 21:33 | Outpatient (CLI) | payer MEDICAID, SELFPAY ==
[2024-07-07 21:59] VITALS: PULSE 93; O2SAT 99
[2024-07-07 22:03] VITALS: BP 115/70; PULSE 91
[2024-07-07 22:12] VITALS: BMI 22.3
[2024-07-07 22:29] LABS: Color, Urine Yellow (Yellow); Glucose, Dipstick Normal (Normal); Ketone-Dipstick 15 mg/dl (Negative); Leukocyte Esterase-Dipstick 25 /ul (Negative); Nitrite-Dipstick Negative (Negative); Occult Blood-Urine Negative /ul (Negative); Protein-Dipstick 30 mg/dl (Negative); Specific Gravity, Urine 1.025 (1.002-1.030); Urine Bilirubin Dipstick Negative (Negative); Urine Clarity Sl. Cloudy (Clear); Urine Urobilinogen 1 mg/dl (Normal)
[2024-07-07] MEDS: Ondansetron 4 MG/2 ML Vial IV (23:09)
[2024-07-07] MEDS: Lactated Ringers 1,000 ML 999 ML IV (23:09)
[2024-07-08] MEDS: Lactated Ringers 1,000 ML 150 ML IV ×2 (00:57→07:43)
[2024-07-08] MEDS: Betamethasone/Betamethasone 30 MG/5 ML Vial 12 MG IM (01:02)
[2024-07-08] MEDS: Acetaminophen 500 MG Tablet 1000 MG PO (01:11)
[2024-07-08 01:14] VITALS: BP 94/54; PULSE 64; O2SAT 82; O2SAT 99
[2024-07-08 04:15] VITALS: PULSE 71; O2SAT 99
[2024-07-08 04:16] VITALS: BP 99/55; PULSE 68
[2024-07-08] MEDS: Ondansetron 4 MG/2 ML Vial IV (04:38)
--- NOTE | 2024-07-08 07:51 | US_ITS ---
STUDY: OBSTETRICAL ULTRASOUND - BIOPHYSICAL PROFILE REASON FOR EXAM: Female, 18 years old LOW BASE LINE LMP: Unknown PRIOR ULTRASOUND: 05/02/2024. TECHNIQUE: Transabdominal TECHNICAL QUALITY: Adequate. FINDINGS: There is a single intrauterine fetus. The fetus is in a cephalic presentation. There is demonstrated cardiac activity with a heart rate of 114 bpm. There is a normal amniotic fluid volume. The largest amniotic fluid pocket measures 6.0 cm. The amniotic fluid index (MICHELE) is 16.8 cm. The placenta is fundal in location. There are Grade 0 placental changes. BIOPHYSICAL PROFILE: Breathing Movements (FBM): 0 Gross Body Movements (GBM): 2 Tone (FT): 2 Amniotic Fluid Volume (AFV): 2 TOTAL SCORE: US/Biophysical Prof W/O Non Stres IMPRESSION: biophysical profile of 04/01. Electronically Signed: Thanh Chow MD (Brooks) at 11:55 EDT ,
--- NOTE | 2024-07-08 08:55 | OB.TRI.HP_ITS ---
HPI - General HPI Narrative JENSEN SALDIVAR, is a 18 F who presents at 34.1 with nausea, feeling unwell, back pain with unknown contractions. feeling active fetus. no vb, lof. Maternal Data Information CLEMENTE Calculator Estimated Delivery Date Method Current WG Current Estimate 08/17/24 Ultrasound #1 34w 2d Other Estimates 08/10/24 LMP (Certain) 35w 2d 08/04/24 Conception 36w 1d PFSH PFSH Medical History (Updated 07/08/24 @ 09:12 by Beth Brooks CNM) History of pre-term labor Psychiatric disorder Anemia Hx of trauma Hx of chlamydia infection Closed boxer's fracture Substance abuse Smoker Borderline personality disorder Vagina itching Hip pain, bilateral Back pain Oppositional defiant disorder Screen for STD (sexually transmitted disease) Insomnia ADHD Bipolar 1 disorder Depression Anxiety Home Medications ?Medication ?Instructions ?Recorded ?Last Taken ?Type ferrous sulfate 325 mg (65 mg 325 mg PO DAILY #90 tabs 02/02/24 Unknown Rx iron) tablet (Feosol) Allergy/AdvReac Type Severity Reaction Status Date / Time amoxicillin Allergy Mild Hives Verified 07/07/24 22:13 penicillin G Allergy Mild Hives Verified 07/07/24 22:13 Environmental Allergies: Allergy Hives Verified 07/07/24 22:13 Uncoded folic acid AdvReac Intermediate depression Verified 07/07/24 22:13 Family History Grandfather Cancer Maternal -lung Grandmother Diabetes maternal TIA (transient ischemic attack) Mother Liver disease Cirrhosis COPD (chronic obstructive pulmonary disease) Father Fibromyalgia Brother Cancer, Onset Age: 31 Half Brother- Bladder ca Surgical History no surgical history Social History adopted: No housing: apartment current occupational status: employed 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 current occupational exposures/hazards: No pets and animals: Yes pets and animals: dog(s) history of recent travel: No sexually active: Yes Smoking Status: Current every day smoker tobacco type: cigarettes and e- cigarettes Electronic Cigarette Use: with nicotine quit status: considering quitting alcohol intake: never substance use type: does not use diet: lactose free well-balanced diet: daily or most days caffeine: Yes Type: coffee Number of servings: 2 eating out: 4 or more times/week during the past year weight has: remained stable what type of physical activity do you participate in: none deepak/adventism: None seatbelt use: always do you feel safe at home: Yes additional social history: FOB - Gareth History 2 Elective abortions Hx Para 1 Spontaneous abortions Hx # Term Pregnancies Ectopic pregnancies Hx # Pregnancies Multiple births # of living children 1 Past Pregnancies Del. Date Name GA/Weeks Outcome Route Bth Weight Gen Labor Lgth Anesthesia Del Locatn Provider FOB 06/01/18 Efraín 34 live - 4lbs 15oz Male [address] [facility] Dr. Nolasco Visit Details Expected Delivery Route/Plan Labor Preferences- labor support person: [] labor intervention preferences: prefers minimal intervention, had bad experience with epidural last time, negative experience with pitocin pain management options preferred: hydrotherapy, massage, guided breathing, may get epidural if needed but anxious about it, cut cord/dad catch: : [] PP control planned: [] discussed possible routes of delivery and associated risks: [] special requests: [] Plans Covid status: [] Flu vaccine: [] Tdap vaccine: declined Rhogam:na LARC form signed: declined movement and labor precautions reviewed. Problem list reviewed and updated with the most current plan of care details and appropriate orders placed. Relevant counseling for the gestational age provided. Continue routine care and follow up unless otherwise noted in visit notes/problem list details OB Flowsheet Initial Weight: Not Recorded Date -?-?-?-?-?-?-?-?-?-?-?-?- EGA Weight BP Urine Prot -?-?-?-?-?-?-?-?-?-?-?-?- Glucose FHR FuHt Pres Dilation -?-?-?-?-?-?-?-?-?-?-?-?- Effaced St Visit Note 12/21/23 -?-?-?-?-?-?-?-?-?-?-?-?- 5w 5d 127 lb 4 oz 102/69 -?-?-?-?-?-?-?-?-?-?-?-?- -?-?-?-?-?-?-?-?-?-?-?-?- kw- Formal US to day showing gest age of 5.6 weeks with no pole. patient having fatigue and increased hunger. NOB blood work today. to repeat US late this week or early next week to determine viability. 01/05/24 -?-?-?-?-?-?-?-?-?-?-?-?- 7w 6d 206 lb 6 oz 126 lb 8 oz 114/61 109/71 -?-?-?-?-?-?-?-?-?-?-?-?- 157 -?-?-?-?-?-?-?-?-?-?-?-?- LC- 15mm CRL con with LMP. CLEMENTE 08/12/2024. +FHR. LC- 15mm CRL con with LMP. E DD 08/12/2024. +FHR. gc/ct collected. drug screening obtained. 02/02/24 -?-?-?-?-?-?-?-?-?-?-?-?- 11w 6d 123 lb 110/64 Negative -?-?-?-?-?-?-?-?-?-?-?-?- Negative 168 -?-?-?-?-?-?-?-?-?-?-?-?- MH-NO VB, regina colvin. Reviewed PN labs. Not taking PNV due to folic acid allergy. Insurance doesn't cover L meth jomar. 02/29/24 -?-?-?-?-?-?-?-?-?-?-?-?- 15w 5d 122 lb 110/66 Negative -?-?-?-?-?-?-?-?-?-?-?-?- Negative 157 -?-?-?-?-?-?-?-?-?-?-?-?- MH-Has had light spotting after intercourse but resolves next day. Denies other concerns. No flutters yet. MFM 03/23. FHT easily found 03/31/24 -?-?-?-?-?-?-?-?-?-?-?-?- 20w 1d 124 lb 4 oz 110/71 Nega tive -?-?-?-?-?-?-?-?-?-?-?-?- Negative 150 -?-?-?-?-?-?-?-?-?-?-?-?- Sm- no vb lof go od fm no regualr ctx co right hip pain. discussed PT and massage therapy 04/28/24 -?-?-?-?-?-?-?-?-?-?-?-?- 24w 1d 125 lb 111/68 Negative -?-?-?-?-?-?-?-?-?-?-?-?- Negative 140 -?-?-?-?-?-?-?-?-?-?-?-?- SM- no vb lof go od fm n oregular ctx 05/25/24 -?-?-?-?-?-?-?-?-?-?-?-?- 28w 0d 128 lb 4 oz 108/71 Nega tive -?-?-?-?-?-?-?-?-?-?-?-?- Negative 145 27 -?-?-?-?-?-?-?-?-?-?-?-?- SM- no vb lof go o dfm no regular ctx nl gct 06/08/24 -?-?-?-?-?-?-?-?-?-?-?-?- 30w 0d 129 lb 106/69 Negative -?-?-?-?-?-?-?-?-?-?-?-?- Negative 140 29 -?-?-?-?-?-?-?-?-?-?-?-?- SM- no vb lof go od fm no regular ctx 06/22/24 -?-?-?-?-?-?-?-?-?-?-?-?- 32w 0d 132 lb 110/72 Negative -?-?-?-?-?-?-?-?-?-?-?-?- Negative 145 31 -?-?-?-?-?-?-?-?-?-?-?-?- SM- no vb lof go od fm nor egular ctx growth us today 06/28/24 -?-?-?-?-?-?-?-?-?-?-?-?- 32w 6d 132 lb 121/74 Negative -?-?-?-?-?-?-?-?-?-?-?-?- Negative 130 -?-?-?-?-?-?-?-?-?-?-?-?- SM- discussed IU GR diagnosis, had reviewed dating with MFM. no vb lof good fm no regular ctx. patient anxious about being induced, epidural, pain management. reassurance provided and discussed plan of care. 07/04/24 -?-?-?-?-?-?-?-?-?-?-?-?- 33w 5d 134 lb 2 oz 113/73 Nega tive -?-?-?-?-?-?-?-?-?-?-?-?- Negative 140 32 -?-?-?-?-?-?-?-?-?-?-?-?- KW- no vb/lof/ct x. lot of fm during NST today. no concerns today. NST reactive. Physical Exam Const alert, oriented x3 and no apparent distress Resp normal respiratory effort, normal air movement, no retractions and no use of ac cessory muscles Cardio regular rate and regular rhythm GI soft to palpation and non-tender Inspection: Palpation: soft Rectal Exam: deferred no CVA tenderness and external exam normal Bimanual Exam - Vag & Uterus: uterus non-tender and other gravid uterus, normal for gestational age OB / External & Speculum: Negative for herpetic lesions Manual OB Exam: estimated gestational size appropriate and presentation cephalic Amniotic Fluid: no amniotic fluid noted Extremity normal to inspection and full ROM Neuro Motor Exam: strength 5/5 throughout and muscle tone normal throughout Deep Tendon Reflexes: Rt Patellar (L4): 2+ and Lt Patellar (L4): 2+ NST FHR Rate Baby A Baseline: 100-115 Variability:: Moderate Accelerations:: 15 x 15 Decelerations:: None NST Reactive:: Yes FHR Category:: Category I Assessment & Plan (1) uterine contractions: COMMENT: unchanged cervical exam betamethasone given, plan to return tomorrow for second dose. (2) NST (non-stress test) nonreactive: COMMENT: baseline 100-115. to obtain bpp. if reassuring d/c home with current cat 1 tracing. PLAN: Plan Patient presents for triage evaluation secondary to feeling unwell, nausea, back pain. labor symptoms, ruled out. unchanged cervical exam over 12 hours. no longer having painful contractions. case reviewed with Dr. Carranza who agrees with plan of care. FHT: Moderate variability reactive no decelerations category I tracing [place]: irreg Contractions Assessment and plan: now with Reactive NST, reassuring maternal and status patient discharged to home to follow-up in office and tomorrow for second dose of betamethasone. See problem list details for additional plan information. Charges/Coding Visit Charges Office Visits / Consults: 91274 OV L3 Est 20min Procedures Urinary/Genital 52xxx-59xxx: 33763-41 non-stress test Interp Multi Select Codes Urinary/Genital Urinary/Genital CPT Codes: 88687-74 non-stress test Interp
== END 2024-07-08 12:38 | disposition home or self-care (01) ==
LOC: WPOUT 21:42 → WP 21:44
PROVIDERS: PCP Registered Nurse; Referring Provider Registered Nurse; Visit Provider Registered Nurse
DX: O47.9 False labor, unspecified (principal); F17.210 Nicotine dependence, cigarettes, uncomplicated; F17.290 Nicotine dependence, other tobacco product, uncomplicated; Z3A.00 Weeks of gestation of pregnancy not specified
CPT/HCPCS: 96374; 96361; 59025; 59050; 76819; 81002; 96372; 99221; J7120; G0378; J0702; J2405

== ENCOUNTER 2024-07-08 23:59 | Outpatient (CLI) | payer MEDICAID, SELFPAY ==
[2024-07-09 00:27] VITALS: PULSE 71; O2SAT 81; O2SAT 99
[2024-07-09 00:34] VITALS: BMI 22.8
[2024-07-09 00:35] VITALS: BP 112/58; PULSE 67
[2024-07-09] MEDS: Betamethasone/Betamethasone 30 MG/5 ML Vial 12 MG IM (01:06)
[2024-07-09 10:40] VITALS: PULSE 87; O2SAT 99
--- NOTE | 2024-07-14 12:56 | OB.TRI.HP_ITS ---
HPI - General General Date of Service: 07/09/24 HPI Narrative JENSEN SALDIVAR, is a 18 F who presents at for second dose of celestone and NST Maternal Data Information CLEMENTE Calculator Estimated Delivery Date Method Current WG Current Estimate 08/17/24 Ultrasound #1 35w 1d Other Estimates 08/10/24 LMP (Certain) 36w 1d 08/04/24 Conception 37w 0d PFSH PFSH Medical History History of pre-term labor Psychiatric disorder Anemia Hx of trauma Hx of chlamydia infection Closed boxer's fracture Substance abuse Smoker Borderline personality disorder Vagina itching Hip pain, bilateral Back pain Oppositional defiant disorder Screen for STD (sexually transmitted disease) Insomnia ADHD Bipolar 1 disorder Depression Anxiety Home Medications ?Medication ?Instructions ?Recorded ?Last Taken ?Type ferrous sulfate 325 mg (65 mg 325 mg PO DAILY #90 tabs 02/02/24 Unknown Rx iron) tablet (Feosol) Allergy/AdvReac Type Severity Reaction Status Date / Time amoxicillin Allergy Mild Hives Verified 07/12/24 14:20 penicillin G Allergy Mild Hives Verified 07/12/24 14:20 Environmental Allergies: Allergy Hives Verified 07/12/24 14:20 Uncoded folic acid AdvReac Intermediate depression Verified 07/12/24 14:20 Family History Grandfather Cancer Maternal -lung Grandmother Diabetes maternal TIA (transient ischemic attack) Mother Liver disease Cirrhosis COPD (chronic obstructive pulmonary disease) Father Fibromyalgia Brother Cancer, Onset Age: 31 Half Brother- Bladder ca Social History adopted: No housing: apartment current occupational status: employed 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 current occupational exposures/hazards: No pets and animals: Yes pets and animals: dog(s) history of recent travel: No sexually active: Yes Smoking Status: Current every day smoker tobacco type: cigarettes and e- cigarettes Electronic Cigarette Use: with nicotine quit status: considering quitting alcohol intake: never substance use type: does not use diet: lactose free well-balanced diet: daily or most days caffeine: Yes Type: coffee Number of servings: 2 eating out: 4 or more times/week during the past year weight has: remained stable what type of physical activity do you participate in: none deepak/spiritism: None seatbelt use: always do you feel safe at home: Yes additional social history: FOB - Gareth History 2 Elective abortions Hx Para 1 Spontaneous abortions Hx # Term Pregnancies Ectopic pregnancies Hx # Pregnancies Multiple births # of living children 1 Past Pregnancies Del. Date Name GA/Weeks Outcome Route Bth Weight Gen Labor Lgth Anesthesia Del Locatn Provider FOB 06/01/18 Efraín 34 live - 4lbs 15oz Male 10 h ours epidural [facility] Dr. Nolasco Visit Details Expected Delivery Route/Plan Labor Preferences- labor support person: [] labor intervention preferences: prefers minimal intervention, had bad experience with epidural last time, negative experience with pitocin pain management options preferred: hydrotherapy, massage, guided breathing, may get epidural if needed but anxious about it, cut cord/dad catch: : [] PP control planned: [] discussed possible routes of delivery and associated risks: [] special requests: [] Plans Covid status: [] Flu vaccine: [] Tdap vaccine: declined Rhogam:na LARC form signed: declined movement and labor precautions reviewed. Problem list reviewed and updated with the most current plan of care details and appropriate orders placed. Relevant counseling for the gestational age provided. Continue routine care and follow up unless otherwise noted in visit notes/problem list details OB Flowsheet Initial Weight: Not Recorded Date -?-?-?-?-?-?-?-?-?-?-?-?- EGA Weight BP Urine Prot -?-?-?-?-?-?-?-?-?-?-?-?- Glucose FHR FuHt Pres Dilation -?-?-?-?-?-?-?-?-?-?-?-?- Effaced St Visit Note 12/21/23 -?-?-?-?-?-?-?-?-?-?-?-?- 5w 5d 127 lb 4 oz 102/69 -?-?-?-?-?-?-?-?-?-?-?-?- -?-?-?-?-?-?-?-?-?-?-?-?- kw- Formal US to day showing gest age of 5.6 weeks with no pole. patient having fatigue and increased hunger. NOB blood work today. to repeat US late this week or early next week to determine viability. 01/05/24 -?-?-?-?-?-?-?-?-?-?-?-?- 7w 6d 206 lb 6 oz 126 lb 8 oz 114/61 109/71 -?-?-?-?-?-?-?-?-?-?-?-?- 157 -?-?-?-?-?-?-?-?-?-?-?-?- LC- 15mm CRL con with LMP. CLEMENTE 08/12/2024. +FHR. LC- 15mm CRL con with LMP. E DD 08/12/2024. +FHR. gc/ct collected. drug screening obtained. 02/02/24 -?-?-?-?-?-?-?-?-?-?-?-?- 11w 6d 123 lb 110/64 Negative -?-?-?-?-?-?-?-?-?-?-?-?- Negative 168 -?-?-?-?-?-?-?-?-?-?-?-?- MH-NO VB, regina colvin. Reviewed PN labs. Not taking PNV due to folic acid allergy. Insurance doesn't cover L meth jomar. 02/29/24 -?-?-?-?-?-?-?-?-?-?-?-?- 15w 5d 122 lb 110/66 Negative -?-?-?-?-?-?-?-?-?-?-?-?- Negative 157 -?-?-?-?-?-?-?-?-?-?-?-?- MH-Has had light spotting after intercourse but resolves next day. Denies other concerns. No flutters yet. MFM US 03/23. FHT easily found 03/31/24 -?-?-?-?-?-?-?-?-?-?-?-?- 20w 1d 124 lb 4 oz 110/71 Nega tive -?-?-?-?-?-?-?-?-?-?-?-?- Negative 150 -?-?-?-?-?-?-?-?-?-?-?-?- Sm- no vb lof go od fm no regualr ctx co right hip pain. discussed PT and massage therapy 04/28/24 -?-?-?-?-?-?-?-?-?-?-?-?- 24w 1d 125 lb 111/68 Negative -?-?-?-?-?-?-?-?-?-?-?-?- Negative 140 -?-?-?-?-?-?-?-?-?-?-?-?- SM- no vb lof go od fm n oregular ctx 05/25/24 -?-?-?-?-?-?-?-?-?-?-?-?- 28w 0d 128 lb 4 oz 108/71 Nega tive -?-?-?-?-?-?-?-?-?-?-?-?- Negative 145 27 -?-?-?-?-?-?-?-?-?-?-?-?- SM- no vb lof go o dfm no regular ctx nl gct 06/08/24 -?-?-?-?-?-?-?-?-?-?-?-?- 30w 0d 129 lb 106/69 Negative -?-?-?-?-?-?-?-?-?-?-?-?- Negative 140 29 -?-?-?-?-?-?-?-?-?-?-?-?- SM- no vb lof go od fm no regular ctx 06/22/24 -?-?-?-?-?-?-?-?-?-?-?-?- 32w 0d 132 lb 110/72 Negative -?-?-?-?-?-?-?-?-?-?-?-?- Negative 145 31 -?-?-?-?--?-?-?-?-?-?-?-?- SM- no vb lof go od fm nor egular ctx growth us today 06/28/24 -?-?-?-?-?-?-?-?-?-?-?-?- 32w 6d 132 lb 121/74 Negative -?-?-?-?-?-?-?-?-?-?-?-?- Negative 130 -?-?-?-?-?-?-?-?-?-?-?-?- SM- discussed IU GR diagnosis, had reviewed dating with MFM. no vb lof good fm no regular ctx. patient anxious about being induced, epidural, pain management. reassurance provided and discussed plan of care. 07/04/24 -?-?-?-?-?-?-?-?-?-?-?-?- 33w 5d 134 lb 2 oz 113/73 Nega tive -?-?-?-?-?-?-?-?-?-?-?-?- Negative 140 32 -?-?-?-?-?-?-?-?-?-?-?-?- KW- no vb/lof/ct x. lot of fm during NST today. no concerns today. NST reactive. 07/12/24 -?-?-?-?-?-?-?-?-?-?-?-?- 34w 6d 135 lb 119/72 Negative -?-?-?-?-?-?-?-?-?-?-?-?- Negative 130 -?-?-?-?-?-?-?-?-?-?-?-?- SM- nst reactive repeat US shows IUGR resolved, recommend repeat testing unti lrepeat growth done in 2 weeks. NST FHR Rate Baby A Baseline: 125 Variability:: Moderate Accelerations:: 15 x 15 Decelerations:: None NST Reactive:: Yes FHR Category:: Category I Assessment & Plan (1) History of delivery, currently : COMMENT: at 34 weeks. consider cervical lengths starting at 16 week. 19 wk: 32 mm. Rpt 2 wk (2) Intrauterine growth restriction (IUGR) affecting care of mother, third trimester, single gestation: COMMENT: repeat AC 15%, repeat growth in 2 weeks to confirm. discussed with MFM and confirmed CLEMENTE based on early ultrasound. recommend weekly nst and weekly bpp/dopplers and delivery at 38 weeks (3) : QUALIFIERS: Weeks of gestation: 34 weeks Qualified Code(s): Z3A.34 - 34 weeks gestation of COMMENT: declined genetic & carrier testing (4) NST (non-stress test) reactive: PLAN: Plan Patient presents for triage evaluation secondary to second dose of celestone and nst. FHT: Moderate variability reactive no decelerations category I tracing [place]: no Contractions Assessment and plan: Reactive NST, reassuring maternal and status patient discharged to home to follow-up in office. See problem list details for additional plan information. Charges/Coding Procedures Urinary/Genital 52xxx-59xxx: 82712-15 non-stress test Interp
== END 2024-07-09 01:35 | disposition home or self-care (01) ==
LOC: WPOUT 07-09 00:05 → WP 07-09 00:13
PROVIDERS: PCP Registered Nurse; Referring Provider Registered Nurse; Visit Provider Registered Nurse
DX: O36.5930 Maternal care for other known or suspected poor fetal growth, third trimester, not applicable or unspecified (principal); F17.210 Nicotine dependence, cigarettes, uncomplicated; F17.290 Nicotine dependence, other tobacco product, uncomplicated; Z3A.34 34 weeks gestation of pregnancy; O99.333 Smoking (tobacco) complicating pregnancy, third trimester; O47.9 False labor, unspecified
CPT/HCPCS: 96374; 96361; 59025; 59050; 76819; 81002; 96372; 99221; J7120; G0378; J0702; J2405

== ENCOUNTER 2024-07-15 16:42 | Outpatient (CLI) | payer MEDICAID, SELFPAY ==
[2024-07-15 16:42] VITALS: BP 120/78; PULSE 105; RESP 16; TEMP 36.8; O2SAT 98; BMI 22.5
--- NOTE | 2024-07-15 17:05 | EX.ED.DYSGE1 ---
HPI History of Present Illness Chief Complaint: Syncope Informant: patient Onset/Context/Timing Onset: Today Context: Sudden Onset Timing: Continuous Current Severity: Mild Maximum Severity: Moderate Narrative Narrative: 18-year-old female history of anemia. Currently 35 weeks due August 17. She is Ab0. She sees Dr. Arminda Perez of [facility]. He states has been doing well. She has had no abdominal or pelvic pain. No vaginal bleeding. No dysuria. Denies any recent illness. Today she was driving. Onset was she fell as she was going to pass out and had a syncopal episode that lasted maybe 30 seconds to a minute. Associated nausea no vomiting or diarrhea. No dysuria. No chest pain or shortness of breath. No hemoptysis. No leg swelling. Prior similar symptoms: Yes Recent Illness/Hospitalization: No PFSH PFSH Medical History History of pre-term labor Psychiatric disorder Anemia Hx of trauma Hx of chlamydia infection Closed boxer's fracture Substance abuse Smoker Borderline personality disorder Vagina itching Hip pain, bilateral Back pain Oppositional defiant disorder Screen for STD (sexually transmitted disease) Insomnia ADHD Bipolar 1 disorder Depression Anxiety Home Medications ?Medication ?Instructions ?Recorded ?Last Taken ?Type ferrous sulfate 325 mg (65 mg 325 mg PO DAILY #90 tabs 02/02/24 Unknown Rx iron) tablet (Feosol) Allergy/AdvReac Type Severity Reaction Status Date / Time amoxicillin Allergy Mild Hives Verified 07/15/24 16:46 penicillin G Allergy Mild Hives Verified 07/15/24 16:46 Environmental Allergies: Allergy Hives Verified 07/15/24 16:46 Uncoded folic acid AdvReac Intermediate depression Verified 07/15/24 16:46 Family History Grandfather Cancer Maternal -lung Grandmother Diabetes maternal TIA (transient ischemic attack) Mother Liver disease Cirrhosis COPD (chronic obstructive pulmonary disease) Father Fibromyalgia Brother Cancer, Onset Age: 31 Half Brother- Bladder ca Social History adopted: No housing: apartment current occupational status: employed 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 current occupational exposures/hazards: No pets and animals: Yes pets and animals: dog(s) history of recent travel: No sexually active: Yes Smoking Status: Current every day smoker tobacco type: cigarettes and e-cigarettes Electronic Cigarette Use: with nicotine quit status: considering quitting alcohol intake: never substance use type: does not use diet: lactose free well-balanced diet: daily or most days caffeine: Yes Type: coffee Number of servings: 2 eating out: 4 or more times/week during the past year weight has: remained stable what type of physical activity do you participate in: none deepak/yazidism: None seatbelt use: always do you feel safe at home: Yes additional social history: ERIN Servin ROS ROS ED ROS Narrative Denies recent illness. Constitutional Constitutional ED: Denies chills or fever(s) Eyes Eyes: Denies blurry vision ENT ENT ED: Denies ear pain Cardiovascular Cardiovascular: Denies chest pain Respiratory/Chest Respiratory/Chest: Denies cough or dyspnea Gastrointestinal Gastrointestinal: Denies abdominal pain Genitourinary Genitourinary ED: Denies dysuria or hematuria Musculoskeletal Musculoskeletal: Denies arthralgias Integumentary Denies abscess Neurologic Neurologic: Denies headache(s) Psychiatric Psychiatric: Denies anxiety Endocrine Endocrinology: Denies cold intolerance Hematologic/Lymphatic Hematologic/Lymphatic: Reports none Allergic/Immunologic Allergic/Immunologic ED: Denies mouth swelling, tongue swelling or urticaria EXAM Physical Exam Narrative Exam Narrative: Well-appearing 18-year-old female. Sitting upright in bed. No one else present in the room. H EENT exam unremarkable. Pupils round react light. No facial droop. Normal speech. No trauma. Neck nontender. No lymphadenopathy. Lungs clear to auscultation bilaterally. Heart regular rhythm rate about 100 no murmur. Chest wall ribs nontender. Abdomen soft nontender. No peritoneal signs. Back nontender. Moving all 4 extremities. 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 Dorsi plantarflexion intact. Calves are nontender without edema or cords. Neurologically she is awake alert. Answer question following commands. NIH is 0. Const Vital Signs: 07/15/24 16:42 07/15/24 17:11 07/15/24 18:42 Temperature 98.2 F Temperature Source Oral Pulse Rate 105 H 76 Pulse Rate [Lying] 67 Pulse Rate [Sitting (for 1 minute prior to obtaining)] 81 Pulse Rate [Standing (for 1 minute prior to obtaining)] 101 H Respiratory Rate 16 20 H Blood Pressure 120/78 112/71 Blood Pressure [Lying] 116/74 Blood Pressure [Sitting (for 1 minute prior to obtaining)] 122/71 H Blood Pressure [Standing (for 1 minute prior to obtaining)] 117/69 Blood Pressure Mean 92 84 Blood Pressure Mean [Lying] 88 Blood Pressure Mean [Sitting (for 1 minute prior to obtaining)] 88 Blood Pressure Mean [Standing (for 1 minute prior to obtaining)] 85 Pulse Ox 98 100 Oxygen Delivery Method Room Air Room Air 07/15/24 20:00 Temperature Temperature Source Pulse Rate 80 Pulse Rate [Lying] Pulse Rate [Sitting (for 1 minute prior to obtaining)] Pulse Rate [Standing (for 1 minute prior to obtaining)] Respiratory Rate 16 Blood Pressure 114/72 Blood Pressure [Lying] Blood Pressure [Sitting (for 1 minute prior to obtaining)] Blood Pressure [Standing (for 1 minute prior to obtaining)] Blood Pressure Mean 86 Blood Pressure Mean [Lying] Blood Pressure Mean [Sitting (for 1 minute prior to obtaining)] Blood Pressure Mean [Standing (for 1 minute prior to obtaining)] Pulse Ox 100 Oxygen Delivery Method Room Air Positive well nourished and well developed; Negative for obese, cachectic, contractures or unkempt General Appearance ED: well developed and NAD; Negative for unkempt, cachectic, contractures, cyanotic, diaphoretic or pallor Nutritional Appearance: Negative for cachectic or obese HEENT Reports moist mucous membranes; Denies dry mucous membranes Negative for trauma or tenderness Mouth ED: No dry mucous membranes Mouth: No dry mucous membranes Eyes EOMs intact bilaterally General Eye ED: Negative for pale conjunctiva or scleral icterus Neck no lymphadenopathy, supple and no JVD General: Negative for tenderness Lymph Lymphatic: Negative for other Chest Wall inspection of chest normal and palpation of chest normal Chest: Negative for other Resp normal respiratory effort and clear to auscultation bilaterally Effort and Inspection: Negative for retractions Auscultation: Negative for rales, rhonchi or wheezes Cardio regular rate, regular rhythm, S1 normal heart sound, S2 normal heart sound and no murmurs Palpation: Negative for palpable S3 or palpable S4 Rate: Negative for bradycardia or tachycardic Rhythm: Negative for abnormal rhythm GI normal to inspection, nondistended, normoactive bowel sounds, non-tender, non-distended and no masses GI Narrative: Gravid nontender uterus. Inspection: Negative for abdominal distention Auscultation: normoactive bowel sounds Palpation: soft; Negative for tender, guarding or rebound tenderness present Back/Spine no CVA tenderness General Back: Negative for CVA tenderness Cervical Spine: Negative for cervical spine tenderness Thoracic Spine / Upper Back: Negative for thoracic spinal tenderness or paraspinal muscle tenderness Lumbar Spine / Lower Back: Negative for lumbar spinal tenderness Extremity normal to inspection General Extremety ED: Negative for edema or tenderness General Extremity: Negative for edema Neuro oriented x3, CN's II-XII intact bilaterally and no sensory deficits noted Sensorium / Orientation: alert; Negative for orientation impaired, lethargic or stuporous Motor Exam: strength 5/5 throughout; Negative for general weakness or strength abnormal Psych mental status grossly normal Appearance: Negative for unkempt Attitude: No agitated Mood & Affect: Negative for depressed, anxious or tearful Skin no rashes or lesions noted, no wounds and skin turgor normal General Skin Exam: Negative for jaundice or pallor Lesions: No lesion noted Rashes: No rashes noted Trauma: Negative for abrasion Wounds: Negative for wounds noted MDM MDM MDM Narrative Medical decision making narrative: 18-year-old female single Domi today while driving. Currently 35 weeks . Exam benign. Screening labs to be obtained. She will be given IV fluids. Repeat exam patient is doing well at [address] Diane Quiros on-call for [facility] [place] [facility]. They will take the patient down to the OB unit for a NST. Nothing if patient does well with that should be discharged home. History & Record Review Discussion w/independent historian: Patient Additional record(s) reviewed:: Prior inpatient record, Prior outpatient record, Prior ED visit and Prior labs Lab Data Attestation: I reviewed the patient's lab results. Lab results narrative: CBC shows a white count 12.2. H&H 9.9 and 29.8. She has a history of anemia. Platelets 280. Electrolytes show gap 8. Normal BUN and creatinine of 8 and 0.7. Glucose 111. Liver enzymes are unremarkable except alk phos is 148. Urinalysis is normal. heart tones were 140. Labs: Laboratory Results - last 24 hr 07/15/24 07/15/24 16:50 17:21 WBC 12.2 H RBC 3.40 L Hgb 9.9 L Hct 29.8 L MCV 87.6 MCH 29.1 MCHC 33.2 RDW Std Deviation 37.3 RDW Coeff of Elijah 11.7 Plt Count 280 MPV 9.7 Immature Gran % (Auto) 0.600 Neut % (Auto) 77.3 H Lymph % (Auto) 17.7 L Tama % (Auto) 4.0 Eos % (Auto) 0.2 Baso % (Auto) 0.2 Absolute Neuts (auto) 9.4 H Absolute Lymphs (auto) 2.15 Nucleated RBC % 0 Sodium 137 Potassium 3.6 Chloride 108 H Carbon Dioxide 21.0 Anion Gap 8 BUN 8 Creatinine 0.71 Estim Creat Clear Calc 113.73 Est GFR (MDRD) Af Amer 135 Est GFR (MDRD) Non-Af 112 BUN/Creatinine Ratio 11.3 Glucose 111 H Calcium 8.8 Total Bilirubin 0.40 AST 10 L ALT 13 Alkaline Phosphatase 148 H Total Protein 6.1 L Albumin 2.8 L Globulin 3.3 Albumin/Globulin Ratio 0.8 L Urine Color Yellow Urine Clarity Clear Urine pH 6.5 Ur Specific [place] 1.010 Urine Protein Negative Urine Glucose (UA) Normal Urine Ketones Negative Urine Occult Blood Negative Urine Nitrite Negative Urine Bilirubin Negative Urine Urobilinogen Normal Ur Leukocyte Esterase Negative Urine RBC 0 SEEN Urine WBC 0-5 SEEN Ur Squamous Epith Cells 0 SEEN Ur Transition Epith Cell 0-5 SEEN Urine Bacteria RARE Urine Mucus 0 SEEN Discharge Plan Triage Chief Complaint: Syncope ED Provider: Jung Salazar Dx/Rx/DC Orders Clinical Impression: Syncope, Third trimester , History of anemia Instructions: ED Fainting, Uncertain Cause Prescriptions: No Action ferrous sulfate [Feosol] 325 mg (65 mg iron) tablet 325 mg PO DAILY Qty: 90 2RF Primary Care Provider: Desiree Eagle NP Referrals: Arminda Nolasco MD [Med Staff - Active Staff] - As Needed Desiree Eagle NP, CRYPTANALYST-C [Primary Care Provider] - Activity Restrictions/Additional Instructions: Your tests look good. Plenty of fluids and rest. I spoke to Dr. Quiros on-call for Dr. Nolasco. They are can to take you down to the OB unit. Evaluate you and if having is good to let you go home. Print Language: Maldivian Disposition Disposition: Home, Self Care
[2024-07-15 17:11] VITALS: BP 116/74; BP 117/69; BP 122/71; PULSE 101; PULSE 67; PULSE 81
--- NOTE | 2024-07-15 17:11 | EKG12_ITS ---
Test Reason : syncope Blood Pressure : / mmHG Vent. Rate : 070 BPM Atrial Rate : 070 BPM P-R Int : 146 ms QRS Dur : 084 ms QT Int : 372 ms P-R-T Axes : 063 055 038 degrees QTc Int : 401 ms Normal sinus rhythm with sinus arrhythmia Normal ECG Confirmed by Mateus Capps ([id number]), magazine editor IRIS GOODMAN ([id number]) on 07/17/2024 11:01:02 AM Referred By: Confirmed By:Mateus Capps
[2024-07-15] MEDS: 0.9% Normal Saline (1000mL) 1,000 ML 1000 ML IV (17:23)
[2024-07-15 17:27] LABS: Absolute Lymphocyte Count 2.15 X10^3/uL (0.83-4.51); Absolute Neutrophil Count 9.4 X10^3/uL (2.0-7.7); Basophil# 0.02 X10^3/uL; Basophil% 0.2 % (0-1); Eosinophil# 0.02 X10^3/uL; Eosinophils% 0.2 % (0-5); Hematocrit 29.8 % (37-47); Hemoglobin 9.9 g/dL (12.0-15.0); Lymphocyte # 2.15 X10^3/ul (0.83-4.51); Lymphocyte % 17.7 % (19-41); Mean Corp Hgb Conc 33.2 g/dL (32-36); Mean Corpuscular Hgb 29.1 pg (27.0-32.0); Mean Corpuscular Volume 87.6 fL (81-99); Mean Platelet Vol. 9.7 fl (6.2-12.0); Monocyte# 0.48 X10^3/uL; NRBC Flagged by Analyzer 0 % (0-5); Neutrophil # 9.41 X10^3/uL (2.7-7.7); Neutrophil % 77.3 % (47-70); Platelet Count 280 K/mm3 (150-450); RBC Distribution Width CV 11.7 % (11.6-14.6); RBC Distribution Width SD 37.3 fl (35.1-43.9); White Blood Count 12.2 K/mm3 (4.4-11.0)
[2024-07-15 17:48] LABS: ALB/GLOB Ratio 0.8 RATIO (0.9-2.4); AST(SGOT) 10 U/L (15-37); Alanine Aminotransfer ALT/SGPT 13 U/L (13-56); Albumin, Serum 2.8 g/dL (3.2-5.0); Alkaline Phosphatase 148 U/L (45-117); Anion Gap 8 (5-15); BUN 8 mg/dL (7-18); BUN/Creat Ratio 11.3 RATIO (10-20); Calcium,Total 8.8 mg/dL (8.5-10.1); Chloride 108 mmol/L (98-107); Creatinine, Serum 0.71 mg/dL (0.55-1.02); EST Glomerular Filtration Rate 112 mL/min (>60); Est Glom Filt Rate - Afr Amer 135 mL/min (>60); Estimated Creatinine Clearance 113.73 ml/min; Globulin 3.3 g/dL (2.2-4.2); Glucose 111 mg/dL (74-106); Potassium 3.6 mmol/L (3.5-5.1); Protein, Total 6.1 g/dL (6.4-8.2); Sodium Level 137 mmol/L (136-145)
[2024-07-15 18:42] VITALS: BP 112/71; PULSE 76; RESP 20; O2SAT 100
[2024-07-15 19:12] LABS: Mucous, Urine 0 SEEN /hpf (<or=2+); Red Blood Cells-Urine 0 SEEN /hpf (0-5); Squamous Epithelial Cells - UA 0 SEEN /hpf (5-10)
[2024-07-15 19:15] LABS: Color, Urine Yellow (Yellow); Glucose, Dipstick Normal (Normal); Ketone-Dipstick Negative (Negative); Leukocyte Esterase-Dipstick Negative /ul (Negative); Nitrite-Dipstick Negative (Negative); Occult Blood-Urine Negative /ul (Negative); Protein-Dipstick Negative (Negative); Urine Bilirubin Dipstick Negative (Negative); Urine Clarity Clear (Clear); Urine Urobilinogen Normal (Normal); Urine pH 6.5 (5.0 - 8.0)
[2024-07-15 19:23] LABS: Bacteria RARE /hpf (None Seen); Transitional Epithelial - Ur 0-5 SEEN /hpf (0-5); White Blood Cells 0-5 SEEN /hpf (0-5)
[2024-07-15 20:00] VITALS: BP 114/72; PULSE 80; RESP 16; O2SAT 100
[2024-07-15 20:22] VITALS: BP 114/72; PULSE 83; RESP 18; TEMP 36.6; O2SAT 99
--- NOTE | 2024-07-15 23:03 | OB.TRI.HP_ITS ---
HPI - General HPI Narrative JENSEN SALDIVAR, is a 18 y/o @ 35 weeks 2 days who presents for an NST due to near syncopal episode and was worked up in the ER. Maternal Data Information CLEMENTE Calculator Estimated Delivery Date Method Current WG Current Estimate 08/17/24 Ultrasound #1 36w 4d Other Estimates 08/10/24 LMP (Certain) 37w 4d 08/04/24 Conception 38w 3d PFSH PFSH Medical History History of pre-term labor Psychiatric disorder Anemia Hx of trauma Hx of chlamydia infection Closed boxer's fracture Substance abuse Smoker Borderline personality disorder Vagina itching Hip pain, bilateral Back pain Oppositional defiant disorder Screen for STD (sexually transmitted disease) Insomnia ADHD Bipolar 1 disorder Depression Anxiety Home Medications ?Medication ?Instructions ?Recorded ?Last Taken ?Type ferrous sulfate 325 mg (65 mg 325 mg PO DAILY #90 tabs 02/02/24 Unknown Rx iron) tablet (Feosol) Allergy/AdvReac Type Severity Reaction Status Date / Time amoxicillin Allergy Mild Hives Verified 07/20/24 14:14 penicillin G Allergy Mild Hives Verified 07/20/24 14:14 Environmental Allergies: Allergy Hives Verified 07/20/24 14:14 Uncoded folic acid AdvReac Intermediate depression Verified 07/20/24 14:14 Family History Grandfather Cancer Maternal -lung Grandmother Diabetes maternal TIA (transient ischemic attack) Mother Liver disease Cirrhosis COPD (chronic obstructive pulmonary disease) Father Fibromyalgia Brother Cancer, Onset Age: 31 Half Brother- Bladder ca Social History adopted: No housing: apartment current occupational status: employed 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 current occupational exposures/hazards: No pets and animals: Yes pets and animals: dog(s) history of recent travel: No sexually active: Yes Smoking Status: Current every day smoker tobacco type: cigarettes and e- cigarettes Electronic Cigarette Use: with nicotine quit status: considering quitting alcohol intake: never substance use type: does not use diet: lactose free well-balanced diet: daily or most days caffeine: Yes Type: coffee Number of servings: 2 eating out: 4 or more times/week during the past year weight has: remained stable what type of physical activity do you participate in: none deepak/congregational: None seatbelt use: always do you feel safe at home: Yes additional social history: FOB - Gareth History 2 Elective abortions Hx Para 1 Spontaneous abortions Hx # Term Pregnancies Ectopic pregnancies Hx # Pregnancies Multiple births # of living children 1 Past Pregnancies Del. Date Name GA/Weeks Outcome Route Bth Weight Infant Gen Labor Lgth Anes thes ia Del Locatn Provider FOB 06/01/18 Efraín 34 live - 4lbs 15oz Male 10 h ours epidural [facility] Dr. Nolasco Visit Details Expected Delivery Route/Plan Labor Preferences- labor support person: [] labor intervention preferences: prefers minimal intervention, had bad experience with epidural last time, negative experience with pitocin pain management options preferred: hydrotherapy, massage, guided breathing, may get epidural if needed but anxious about it, cut cord/dad catch: : [] PP control planned: [] discussed possible routes of delivery and associated risks: [] special requests: [] Plans Covid status: [] Flu vaccine: [] Tdap vaccine: declined Rhogam:na LARC form signed: declined movement and labor precautions reviewed. Problem list reviewed and updated with the most current plan of care details and appropriate orders placed. Relevant counseling for the gestational age provided. Continue routine care and follow up unless otherwise noted in visit notes/problem list details OB Flowsheet Initial Weight: Not Recorded Date -?-?-?-?-?-?-?-?-?-?-?-?- EGA Weight BP Urine Prot -?-?--?-?-?-?-?-?-?-?-?-?- Glucose FHR FuHt Pres Dilation -?-?-?-?-?-?-?-?--?-?-?-?- Effaced St Visit Note 12/21/23 -?-?-?-?-?-?-?-?-?-?-?-?- 5w 5d 127 lb 4 oz 102/69 -?-?-?-?-?-?-?-?-?-?-?-?- -?-?-?-?-?-?-?-?-?-?-?-?- kw- Formal US to day showing gest age of 5.6 weeks with no pole. patient having fatigue and increased hunger. NOB blood work today. to repeat US late this week or early next week to determine viability. 01/05/24 -?-?-?-?-?-?-?-?-?-?-?-?- 7w 6d 206 lb 6 oz 126 lb 8 oz 114/61 109/71 -?-?-?-?-?-?-?-?-?-?-?-?- 157 -?-?-?-?-?-?-?-?-?-?-?-?- LC- 15mm CRL con with LMP. CLEMENTE 08/12/2024. +FHR. LC- 15mm CRL con with LMP. E DD 08/12/2024. +FHR. gc/ct collected. drug screening obtained. 02/02/24 -?-?-?-?-?-?-?-?-?-?-?-?- 11w 6d 123 lb 110/64 Negative -?-?-?-?-?-?-?-?-?-?-?-?- Negative 168 -?-?-?-?-?-?-?-?-?-?-?-?- MH-NO VB, regina colvin. Reviewed PN labs. Not taking PNV due to folic acid allergy. Insurance doesn't cover L meth jomar. 02/29/24 -?-?-?-?-?-?-?-?-?-?-?-?- 15w 5d 122 lb 110/66 Negative -?-?-?-?-?-?-?-?-?-?-?-?- Negative 157 -?-?-?-?-?-?-?-?-?-?-?-?- MH-Has had light spotting after intercourse but resolves next day. Denies other concerns. No flutters yet. MFM US 03/23. FHT easily found 03/31/24 -?-?-?-?-?-?-?-?-?-?-?-?- 20w 1d 124 lb 4 oz 110/71 Nega tive -?-?-?-?-?-?-?-?-?-?-?-?- Negative 150 -?-?-?-?-?-?-?-?-?-?-?-?- Sm- no vb lof go od fm no regualr ctx co right hip pain. discussed PT and massage therapy 04/28/24 -?-?-?-?-?-?-?-?-?-?-?-?- 24w 1d 125 lb 111/68 Negative -?-?-?-?-?-?-?-?-?-?-?-?- Negative 140 -?-?-?-?-?-?-?-?-?-?-?-?- SM- no vb lof go od fm n oregular ctx 05/25/24 -?-?-?-?-?-?-?-?-?-?-?-?- 28w 0d 128 lb 4 oz 108/71 Nega tive -?-?-?-?-?-?-?-?-?--?-?-?- Negative 145 27 -?-?-?-?-?-?-?-?-?-?-?-?- SM- no vb lof go o dfm no regular ctx nl gct 06/08/24 -?-?-?-?-?-?-?-?-?-?-?-?- 30w 0d 129 lb 106/69 Negative -?-?-?-?-?-?-?-?-?-?-?-?- Negative 140 29 -?-?-?-?-?-?-?-?-?-?-?-?- SM- no vb lof go od fm no regular ctx 06/22/24 -?-?-?-?-?-?-?-?-?-?-?-?- 32w 0d 132 lb 110/72 Negative -?-?-?-?-?-?-?-?-?-?-?-?- Negative 145 31 -?-?-?-?-?-?-?-?-?-?-?-?- SM- no vb lof go od fm nor egular ctx growth us today 06/28/24 -?-?-?-?-?-?-?-?-?-?-?-?- 32w 6d 132 lb 121/74 Negative -?-?-?-?-?-?-?-?-?-?-?-?- Negative 130 -?-?-?-?-?-?-?-?-?-?-?-?- SM- discussed IU GR diagnosis, had reviewed dating with MFM. no vb lof good fm no regular ctx. patient anxious about being induced, epidural, pain management. reassurance provided and discussed plan of care. 07/04/24 -?-?-?-?-?-?-?-?-?-?-?-?- 33w 5d 134 lb 2 oz 113/73 Nega tive -?-?-?-?-?-?-?-?-?-?-?-?- Negative 140 32 -?-?-?-?-?-?-?-?-?-?-?-?- KW- no vb/lof/ct x. lot of fm during NST today. no concerns today. NST reactive. 07/12/24 -?-?-?-?-?-?-?-?-?-?-?-?- 34w 6d 135 lb 119/72 Negative -?-?-?-?-?-?-?-?-?-?-?-?- Negative 130 -?-?-?-?-?-?-?-?-?-?-?-?- SM- nst reactive repeat US shows IUGR resolved, recommend repeat testing unti lrepeat growth done in 2 weeks. 07/20/24 -?-?-?-?-?-?-?-?-?-?-?-?- 36w 0d 134 lb 117/80 Negative -?-?-?-?-?-?-?-?-?-?-?-?- Negative 130 1 -?-?-?-?-?-?-?-?-?-?-?-?- KW- no vb/lof/ct x. good fm. nst reactive. IOL set up for 38 weeks pending 37 week growth US. GBS positive in urine NST FHR Rate Baby A Baseline: 140 Variability:: Moderate Accelerations:: 15 x 15 Decelerations:: None NST Reactive:: Yes FHR Category:: Category I Assessment & Plan (1) Syncope: (2) NST (non-stress test) reactive: PLAN: Plan nst is reactive and patient has been cleared by ER. ok to dc to home. Charges/Coding Multi Select Codes Urinary/Genital Urinary/Genital CPT Codes: 91850-24 non-stress test Interp
--- NOTE | 2024-07-15 23:03 | OB.TRI.NOTE ---
HPI - General HPI Narrative JENSEN SALDIVAR, is a 18 y/o @ 35 weeks 2 days who presents for an NST due to near syncopal episode and was worked up in the ER. Maternal Data Information CLEMENTE Calculator Estimated Delivery Date Method Current WG Current Estimate 08/17/24 Ultrasound #1 36w 4d Other Estimates 08/10/24 LMP (Certain) 37w 4d 08/04/24 Conception 38w 3d PFSH PFSH Medical History History of pre-term labor Psychiatric disorder Anemia Hx of trauma Hx of chlamydia infection Closed boxer's fracture Substance abuse Smoker Borderline personality disorder Vagina itching Hip pain, bilateral Back pain Oppositional defiant disorder Screen for STD (sexually transmitted disease) Insomnia ADHD Bipolar 1 disorder Depression Anxiety Home Medications ?Medication ?Instructions ?Recorded ?Last Taken ?Type ferrous sulfate 325 mg (65 mg 325 mg PO DAILY #90 tabs 02/02/24 Unknown Rx iron) tablet (Feosol) Allergy/AdvReac Type Severity Reaction Status Date / Time amoxicillin Allergy Mild Hives Verified 07/20/24 14:14 penicillin G Allergy Mild Hives Verified 07/20/24 14:14 Environmental Allergies: Allergy Hives Verified 07/20/24 14:14 Uncoded folic acid AdvReac Intermediate depression Verified 07/20/24 14:14 Family History Grandfather Cancer Maternal -lung Grandmother Diabetes maternal TIA (transient ischemic attack) Mother Liver disease Cirrhosis COPD (chronic obstructive pulmonary disease) Father Fibromyalgia Brother Cancer, Onset Age: 31 Half Brother- Bladder ca Social History adopted: No housing: apartment current occupational status: employed 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 current occupational exposures/hazards: No pets and animals: Yes pets and animals: dog(s) history of recent travel: No sexually active: Yes Smoking Status: Current every day smoker tobacco type: cigarettes and e-cigarettes Electronic Cigarette Use: with nicotine quit status: considering quitting alcohol intake: never substance use type: does not use diet: lactose free well-balanced diet: daily or most days caffeine: Yes Type: coffee Number of servings: 2 eating out: 4 or more times/week during the past year weight has: remained stable what type of physical activity do you participate in: none deepak/mormon: None seatbelt use: always do you feel safe at home: Yes additional social history: FOB - Gareth History 2 Elective abortions Hx Para 1 Spontaneous abortions Hx # Term Pregnancies Ectopic pregnancies Hx # Pregnancies Multiple births # of living children 1 Past Pregnancies Del. Date Name GA/Weeks Outcome Route Bth Weight Infant Gen Labor Lgth Anesthesia Del Locatn Provider FOB 06/01/18 Efraín 34 live - 4lbs 15oz Male 10 hours epidural [facility] Dr. Nolasco Visit Details Expected Delivery Route/Plan Labor Preferences- labor support person: [] labor intervention preferences: prefers minimal intervention, had bad experience with epidural last time, negative experience with pitocin pain management options preferred: hydrotherapy, massage, guided breathing, may get epidural if needed but anxious about it, cut cord/dad catch: : [] PP control planned: [] discussed possible routes of delivery and associated risks: [] special requests: [] Plans Covid status: [] Flu vaccine: [] Tdap vaccine: declined Rhogam:na LARC form signed: declined movement and labor precautions reviewed. Problem list reviewed and updated with the most current plan of care details and appropriate orders placed. Relevant counseling for the gestational age provided. Continue routine care and follow up unless otherwise noted in visit notes/problem list details OB Flowsheet Initial Weight: Not Recorded Date <del>?</del> EGA Weight BP Urine Prot <del>?</del> Glucose FHR FuHt Pres Dilation <del>?</del> Effaced St Visit Note 12/21/23 <del>?</del> 5w 5d 127 lb 4 oz 102/69 <del>?</del> <del>?</del> kw- Formal US today showing gest age of 5.6 weeks with no pole. patient having fatigue and increased hunger. NOB blood work today. to repeat US late this week or early next week to determine viability. 01/05/24 <del>?</del> 7w 6d 206 lb 6 oz 126 lb 8 oz 114/61 109/71 <del>?</del> 157 <del>?</del> LC- 15mm CRL con with LMP. CLEMENTE 08/12/2024. +FHR. LC- 15mm CRL con with LMP. CLEMENTE 08/12/2024. +FHR. gc/ct collected. drug screening obtained. 02/02/24 <del>?</del> 11w 6d 123 lb 110/64 Negative <del>?</del> Negative 168 <del>?</del> MH-NO VB, cramping. Reviewed PN labs. Not taking PNV due to folic acid allergy. Insurance doesn't cover L meth jomar. 02/29/24 <del>?</del> 15w 5d 122 lb 110/66 Negative <del>?</del> Negative 157 <del>?</del> MH-Has had light spotting after intercourse but resolves next day. Denies other concerns. No flutters yet. MFM US 03/23. FHT easily found 03/31/24 <del>?</del> 20w 1d 124 lb 4 oz 110/71 Negative <del>?</del> Negative 150 <del>?</del> Sm- no vb lof good fm no regualr ctx co right hip pain. discussed PT and massage therapy 04/28/24 <del>?</del> 24w 1d 125 lb 111/68 Negative <del>?</del> Negative 140 <del>?</del> SM- no vb lof good fm n oregular ctx 05/25/24 <del>?</del> 28w 0d 128 lb 4 oz 108/71 Negative <del>?</del> Negative 145 27 <del>?</del> SM- no vb lof goo dfm no regular ctx nl gct 06/08/24 <del>?</del> 30w 0d 129 lb 106/69 Negative <del>?</del> Negative 140 29 <del>?</del> SM- no vb lof good fm no regular ctx 06/22/24 <del>?</del> 32w 0d 132 lb 110/72 Negative <del>?</del> Negative 145 31 <del>?</del> SM- no vb lof good fm nor egular ctx growth us today 06/28/24 <del>?</del> 32w 6d 132 lb 121/74 Negative <del>?</del> Negative 130 <del>?</del> SM- discussed IUGR diagnosis, had reviewed dating with MFM. no vb lof good fm no regular ctx. patient anxious about being induced, epidural, pain management. reassurance provided and discussed plan of care. 07/04/24 <del>?</del> 33w 5d 134 lb 2 oz 113/73 Negative <del>?</del> Negative 140 32 <del>?</del> KW- no vb/lof/ctx. lot of fm during NST today. no concerns today. NST reactive. 07/12/24 <del>?</del> 34w 6d 135 lb 119/72 Negative <del>?</del> Negative 130 <del>?</del> SM- nst reactive repeat US shows IUGR resolved, recommend repeat testing unti lrepeat growth done in 2 weeks. 07/20/24 <del>?</del> 36w 0d 134 lb 117/80 Negative <del>?</del> Negative 130 1 <del>?</del> KW- no vb/lof/ctx. good fm. nst reactive. IOL set up for 38 weeks pending 37 week growth US. GBS positive in urine NST FHR Rate Baby A Baseline: 140 Variability:: Moderate Accelerations:: 15 x 15 Decelerations:: None NST Reactive:: Yes FHR Category:: Category I Assessment & Plan (1) Syncope: (2) NST (non-stress test) reactive: PLAN: Plan nst is reactive and patient has been cleared by ER. ok to dc to home. Charges/Coding Multi Select Codes Urinary/Genital Urinary/Genital CPT Codes: 24491-75 non-stress test Interp
== END 2024-07-15 21:12 | disposition home or self-care (01) ==
LOC: ED 20:18 → WPOUT 20:38 → WP 20:39
PROVIDERS: Emergency Provider Emergency Medicine; PCP Registered Nurse; Visit Provider Obstetrics & Gynecology
DX: O99.891 Other specified diseases and conditions complicating pregnancy (principal); R55 Syncope and collapse; Z3A.35 35 weeks gestation of pregnancy; F17.210 Nicotine dependence, cigarettes, uncomplicated; O99.333 Smoking (tobacco) complicating pregnancy, third trimester
CPT/HCPCS: 96360; 96361; 80053; 81001; 85025; 93005; 99285; J7030

== ENCOUNTER 2024-07-28 20:35 | Outpatient (CLI) | payer MEDICAID, SELFPAY ==
[2024-07-28 20:43] VITALS: PULSE 81; O2SAT 100
[2024-07-28 20:45] VITALS: BP 121/78; PULSE 76
[2024-07-28 21:00] VITALS: BP 117/79; PULSE 75
[2024-07-28 21:02] VITALS: BMI 23.8
[2024-07-28 21:28] LABS: ROM Internal Control Test YES-OK TO RESULT pt. (Internal QC); ROM Patient Test Negative (Negative); Record Kit Lot#, ROM+ K1660
--- NOTE | 2024-07-29 09:05 | OB.TRI.PN_ITS ---
Progress Notes Date of Service: 07/28/24 Progress Note: Patient presents for triage evaluation secondary to vaginal discharge FHT: 120 Moderate variability reactive no decelerations category I tracing [place]: irregular Contractions Assessment and plan: ROM negative, Reactive NST, reassuring maternal and status patient discharged to home to follow-up in the office. See problem list details for additional plan information. Laboratory Studies: Laboratory Tests 07/28/24 Range/Units 21:00 Vag Amniotic Fld Detect Negative (Negative) Charges/Coding Multi Select Codes Urinary/Genital Urinary/Genital CPT Codes: 69317-61 non-stress test Interp Assessment & Plan (1) Vaginal discharge: COMMENT: rom neg, discharge home (2) Right hip pain: COMMENT: suspect nerve or musculoskeletal- recommend massage and PT. referral to [facility] sent (3) History of delivery, currently : COMMENT: at 34 weeks. consider cervical lengths starting at 16 week. 19 wk: 32 mm. Rpt 2 wk (4) Folic acid adverse reaction: QUALIFIERS: Encounter type: subsequent encounter Qualified Code(s): T45.8X5D - Adverse effect of other primarily systemic and hematological agents, subsequent encounter COMMENT: causes depression. Not taking PNV. Insurance won't cover L methylfolate. Enc to take OTC l methylfolate. Also sent Rx for FE (5) Scoliosis: (6) COVID-19 affecting in first trimester: COMMENT: +COVID 12/20/23. recommended ASA, currently not taking. rx sent 01/04 (7) GBS (group B streptococcus) UTI complicating : QUALIFIERS: Trimester: second trimester Qualified Code(s): O23.42 - Unspecified infection of urinary tract in , second trimester; B95.1 - Streptococcus, group B, as the cause of diseases classified elsewhere COMMENT: discussed. treat in labor (8) : QUALIFIERS: Weeks of gestation: 36 weeks Qualified Code(s): Z3A.36 - 36 weeks gestation of COMMENT: declined genetic & carrier testing (9) Supervision of high-risk : QUALIFIERS: Trimester: second trimester Qualified Code(s): O09.92 - Supervision of high risk , unspecified, second trimester COMMENT: PRR , CLEMENTE 08/17/24,girl ERIN Epperson (10) Depression: QUALIFIERS: Depression Type: major depressive disorder Major depression recurrence: recurrent Active/Remission status: in remission of unspecified degree Qualified Code(s): F33.40 - Major depressive disorder, recurrent, in remission, unspecified COMMENT: r/t folic acid. L-methyfolate in . (11) Anemia: COMMENT: repeat CBC in 4 wks (12) Smoker: COMMENT: Vaping considering quitting, counseling provided
== END 2024-07-28 21:52 | disposition home or self-care (01) ==
LOC: WPOUT 20:39 → WP 20:40
PROVIDERS: PCP Registered Nurse; Referring Provider Advanced Practice Midwife; Visit Provider Advanced Practice Midwife
DX: O99.891 Other specified diseases and conditions complicating pregnancy (principal); N89.8 Other specified noninflammatory disorders of vagina; Z3A.36 36 weeks gestation of pregnancy
CPT/HCPCS: 59025; 59050; 84112; 99221; G0378

== ENCOUNTER 2024-09-01 16:04 | Emergency (ER) | payer MEDICAID, SELFPAY ==
[2024-09-01 16:05] VITALS: BP 108/72; PULSE 89; RESP 16; TEMP 36.7; O2SAT 98; BMI 20.5
[2024-09-01 16:09] VITALS: BP 104/67; PULSE 85; RESP 16; O2SAT 98
[2024-09-01 18:52] VITALS: BP 105/64; PULSE 82; RESP 16; TEMP 36.8; O2SAT 96
== END 2024-09-01 18:53 | disposition home or self-care (01) ==
PROVIDERS: Emergency Provider Emergency Medicine; PCP Registered Nurse; Visit Provider Emergency Medicine
DX: N61.0 Mastitis without abscess (principal); F31.9 Bipolar disorder, unspecified; N64.4 Mastodynia; F17.210 Nicotine dependence, cigarettes, uncomplicated; F41.9 Anxiety disorder, unspecified; F90.9 Attention-deficit hyperactivity disorder, unspecified type; F17.290 Nicotine dependence, other tobacco product, uncomplicated
CPT/HCPCS: 76642; 99282

== ENCOUNTER → 2024-12-22 | Outpatient (CLI) | payer MEDICAID, SELFPAY | END | disposition home or self-care (01) | LOC: LABSPEC 16:09 | PROVIDERS: PCP Registered Nurse; Referring Provider Obstetrics & Gynecology; Visit Provider Obstetrics & Gynecology | DX: R35.0 Frequency of micturition (principal); N89.8 Other specified noninflammatory disorders of vagina | CPT/HCPCS: 87070; 87086; 87205 ==